=== PATIENT | male | born 1950 | race Caucasian/White ===

== ENCOUNTER 2017-12-03 20:22 | Emergency (ER) | payer BC ==
[2017-12-03 20:28] VITALS: TEMP 36.5
--- NOTE | 2017-12-03 21:20 | DIAGNOSTIC IMAGING REPORT ---
ABDOMEN 2VIEW W/PA CHEST RTN CLINICAL HISTORY: 67 years-old Male presenting with eval for obstruction. TECHNIQUE: PA view of the chest and supine and upright views of the abdomen were obtained. COMPARISON: None. FINDINGS: Image quality is significantly limited by severe S-shaped scoliotic curvature of the entire spine, degrading evaluation of the chest and abdomen. Allowing for suboptimal positioning, the cardiac silhouette may be enlarged.Linear opacity in the left midlung. No large effusion or pneumothorax. Large stool burden in the rectum. Moderate stool burden in the right colon. Nonobstructive bowel gas pattern. No gross pneumoperitoneum. Osteopenia. Chronic deformities of the femurs and pelvis. Chronic periosteal reaction of the left humerus likely indicating prior fracture. IMPRESSION: 1. Limited left midlung atelectasis or scarring. No convincing evidence of acute cardiopulmonary disease. 2. Findings suggest constipation. Large stool burden in the rectum; disimpaction recommended. No bowel obstruction or gross free air. Electronically signed by: Cortes Amezquita M.D. 12/03/2017 9:18 PM Dictated Date/Time: 12/03/2017 9:15 PM
[2017-12-03] MEDS ORDERED: MILK AND MOLASSES ENEMA PR STA (21:22)
[2017-12-03] MEDS ORDERED: CHOL200027 PO (21:47)
[2017-12-03] MEDS ORDERED: LACT10SO17 PO (21:47)
[2017-12-03] MEDS ORDERED: ASPI81TA28 PO (21:47)
[2017-12-03] MEDS ORDERED: MULT-506 PO (21:47)
[2017-12-03] MEDS ORDERED: LPR25 PO (21:47)
[2017-12-03] MEDS ORDERED: RANI150T3 PO (21:47)
[2017-12-03] MEDS ORDERED: DOCU100C PO (21:47)
[2017-12-03] MEDS ORDERED: POLY335019 PO (21:47)
[2017-12-03] MEDS ORDERED: MINE1OIL PO (21:47)
[2017-12-03 23:02] VITALS: BP 128/88; PULSE 78; O2SAT 94
--- NOTE | 2017-12-04 00:09 | EMERGENCY ROOM VISIT NOTE ---
History Report prepared by Kalpana: Sugey Gonzalez Under the Supervision of: Dr. Yuniel Cox M.D. 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 He is accompanied by his mother and sister who note he has not had a bowel movement since November 14. They note that when he is in pain, he squeezes his fists and rocks back and forth, which they notice he has been doing lately. They note he is passing gas and his stomach is distended but he is not vomiting and has no fevers. They report he is on MiraLAX. HPI limited due to the patient being not verbal. 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 Past Medical & Surgical Medical Problems: (1) Cerebral palsy Family History No pertinent family history Social History Smoking Status: Never Smoker Smokeless Tobacco Use: No Marital Status: single Housing Status: lives with family Current/Historical Medications Scheduled Aspirin (Aspirin Ec), 81 MG PO DAILY Cholecalciferol (Vitamin D-3), 2,000 INTER.UNIT PO DAILY Docusate Sodium (Stool Softener), 100 MG PO BID Lactulose (Chronulac), 1 DOSE PO AFTERNOON Metoprolol Tartrate (Lopressor), 25 MG PO BID Mineral Oil (Mineral Oil), 1 DOSE PO DAILY Multivitamin (Multivitamin), 1 TAB PO DAILY Polyethylene Glycol 3350 (Miralax), 17 GM PO QPM Ranitidine Hcl (Zantac), 150 MG PO BID Allergies Coded Allergies: No Known Allergies (Unverified , 12/03/17) Physical Exam Vital Signs Date Time Temp Pulse Resp B/P (MAP) Pulse Ox O2 Delivery O2 Flow Rate FiO2 12/03/17 23:02 78 18 128/88 94 Room Air 12/03/17 20:28 36.5 82 20 141/109 95 Room Air Physical Exam The physical exam is limited due to the patient's condition. Constitutional: Vital signs reviewed. Eyes: Pupils are equal round reactive to light. Conjunctiva are noninjected. ENT: Mucous membranes are moist Respiratory: Clear to auscultation bilaterally. Breath sounds are equal bilaterally. Cardiovascular: Regular rate and rhythm. No murmurs, rubs or gallops. GI: Soft, nondistended and nontender. Bowel sounds are present. Musculoskeletal: Contractions. Neurological: The patient is awake and alert. He is nonverbal. Psychiatric: Unable to assess. Medical Decision & Procedures ER Provider Diagnostic Interpretation: Radiology results as stated below per my review and the radiologist's interpretation: ABDOMEN 2VIEW W/PA CHEST RTN CLINICAL HISTORY: 67 years-old Male presenting with eval for obstruction. TECHNIQUE: PA view of the chest and supine and upright views of the abdomen were obtained. COMPARISON: None. FINDINGS: Image quality is significantly limited by severe S-shaped scoliotic curvature of the entire spine, degrading evaluation of the chest and abdomen. Allowing for suboptimal positioning, the cardiac silhouette may be enlarged.Linear opacity in the left midlung. No large effusion or pneumothorax. Large stool burden in the rectum. Moderate stool burden in the right colon. Nonobstructive bowel gas pattern. No gross pneumoperitoneum. Osteopenia. Chronic deformities of the femurs and pelvis. Chronic periosteal reaction of the left humerus likely indicating prior fracture. IMPRESSION: 1. Limited left midlung atelectasis or scarring. No convincing evidence of acute cardiopulmonary disease. 2. Findings suggest constipation. Large stool burden in the rectum; disimpaction recommended. No bowel obstruction or gross free air. Electronically signed by: Cortes Amezquita M.D. 12/03/2017 9:18 PM Medications Administered Medications (Trade) Dose Ordered Sig/Meghan Route Start Time Stop Time Status Last Admin Dose Admin Miscellaneous Medication (Milk And Molasses Enema) 1 ea NOW STAT NV 12/03/17 21:22 12/03/17 21:23 DC 12/03/17 22:29 1 EA ED Course 2031: The patient was evaluated in room A12. A complete history and physical exam was performed. 2122: I discussed his x-ray results with his family. 2121: Ordered Milk and Molasses Enema 1 ea NV 2300: Upon reevaluation, the patient had a large bowel movement. I discussed tonight's findings with his family. They verbalized agreement of the treatment plan. He was discharged home. Medical Decision This is a 67-year-old male brought in by his family for evaluation of constipation. I did perform a limited focused review of portions of the patient 's old chart on the electronic medical record. The patient has had no prior visits to this hospital. I did evaluate the patient as noted above. His family brought him in today because he has not been having bowel movements regularly. He has been having very small movements and passing gas. They are concerned he is constipated. They have no concerns for any other issues. He has not had a seizure. I did order and personally review the patient's abdominal and chest x-ray as described above. He does appear to have fecal impaction. I did order a milk and molasses enema. He did have a large bowel movement. He seemed to be improved per his family. He was discharged in good condition and will continue MiraLAX at home. Medication Reconcilliation Current Medication List: was personally reviewed by me Blood Pressure Screening Patient's blood pressure: Normal blood pressure Blood pressure disposition: Did not require urgent referral Impression Primary Impression: Fecal impaction Additional Impression: Constipation Scribe Attestation The scribe's documentation has been prepared under my direct and personally reviewed by me in its entirety. I confirm that the note above accurately reflects all work, treatment, procedures, and medical decision making performed by me. Departure Information Dispostion Home / Self-Care Referrals Vidhya Plascencia DO (PCP) Forms HOME CARE DOCUMENTATION FORM, IMPORTANT VISIT INFORMATION Patient Instructions My [facility] Additional Instructions You have been examined and treated today on an emergency basis only. This is not a substitute for, or an effort to provide, complete comprehensive medical care. It is impossible to recognize and treat all injuries or illnesses in a single emergency department visit. It is therefore important that you follow up closely with your physician. Call as soon as possible for an appointment. Return for worsening symptoms or if you develop fever, vomiting, or any other concerning symptoms. Problem Qualifiers Additional Impression: Constipation Constipation type: unspecified constipation type Qualified Codes: K59.00 - Constipation, unspecified
== END 2017-12-03 23:13 | disposition home or self-care (01) ==
LOC: C.EDB 20:23 → C.EDA 23:13
DX: K59.00 Constipation, unspecified (principal)

== ENCOUNTER 2018-11-06 21:56 | Inpatient (IN) ==
--- NOTE | 2018-11-06 23:12 | XRay Report ---
SINGLE VIEW CHEST CLINICAL HISTORY: Fever. FINDINGS: An AP, portable, upright chest radiograph is compared to study dated 12/03/2017. The examinat ion is significantly degraded by portable technique and patient rotation. The cardiomediastinal silh ouette is unremarkable. There are low lung volumes. Airspace consolidation is seen at the right lung base. No large pleural effusion or pneumothorax is seen. The skeletal structures are osteopenic. The bony thorax is grossly intact. There is moderate to severe thoracolumbar scoliosis with deformity of the thoracic cage. IMPRESSION: 1. Thoracolumbar scoliosis with deformity of the thoracic cage and low lung volumes. 2. Consolidation is seen at the right lung base. This could represent atelectasis versus pneumonia. C linical correlation will be required. 3. The left lung appears clear. Electronically signed by: Jayden Hernández M.D. 11/06/2018 11:10 PM
[2018-11-06 23:39] LABS: Basophils # (auto) 0.01 K/uL (0-0.2); Basophils % (auto) 0.1 %; Eosinophils # (auto) 0.06 K/uL (0-0.5); Eosinophils % (auto) 0.5 %; Hematocrit (blood only) 42.5 % (42-52); Hemoglobin 14.4 g/dL (14.0-18.0); Immature Granulocytes # (auto) 0.04 K/uL (0.00-0.02); Immature Granulocytes % (auto) 0.3 %; Lymphocytes # (auto) 0.47 K/uL (1.2-3.4); Lymphocytes % (auto) 3.6 %; Mean Corpuscular Hgb Conc 33.9 g/dL (32-36); Mean Corpuscular Volume 91.2 fL (80-100); Mean Platelet Volume 8.8 fL (7.4-10.4); Monocytes # (auto) 0.63 K/uL (0.11-0.59); Monocytes % (auto) 4.8 %; Neutrophils % (auto) 90.7 %; Platelet Count 245 K/uL (130-400); RDW Coefficient of Variation 14.4 % (11.5-14.5); Red Blood Count 4.66 M/uL (4.7-6.1); White Blood Count 13.01 K/uL (4.8-10.8)
[2018-11-06] MEDS ORDERED: VANCOMYCIN HCL 750 MG in SODIUM CHLORIDE 0.9% 500 ML IV ONE (23:44)
[2018-11-06] MEDS ORDERED: VANCOMYCIN HCL 750 MG in SODIUM CHLORIDE 0.9% 250 ML IV ONE (23:44)
[2018-11-06] MEDS ORDERED: PIPERACILL/TAZOBAC CONSULT ACTIVE PRN (23:44)
[2018-11-06] MEDS ORDERED: VANCOMYCIN CONSULT ACTIVE PRN (23:44)
[2018-11-06] MEDS ORDERED: PIPERACILLIN/TAZOBACTAM 4.5 GM/120 ML BAG IV ONE (23:44)
[2018-11-06] MEDS ORDERED: SODIUM CHLORIDE 0.9% 1000ML 1,000 ML IV SCH (23:45)
[2018-11-07 00:05] LABS: Alanine Aminotransferase 28 U/L (12-78); Albumin Level 2.8 gm/dl (3.4-5.0); Aspartate Aminotransferase 31 U/L (15-37); BUN Creatinine Ratio 38.7 (10-20); Blood Urea Nitrogen 22 mg/dl (7-18); Calcium 8.6 mg/dl (8.5-10.1); Carbon Dioxide 24 mmol/L (21-32); Chloride 106 mmol/L (98-107); Creatinine Clr Calc Pharmacy 56.4 ml/min; Est GFR (African American) 121.4; Est GFR (Non-African American) 104.8; Glucose 122 mg/dl (70-99); Potassium 4.3 mmol/L (3.5-5.1); Sodium 137 mmol/L (136-145)
[2018-11-07 00:07] LABS: Albumin Globulin Ratio 0.6 (0.9-2); Alkaline Phosphatase 130 U/L (45-117); Bilirubin,Total 0.3 mg/dl (0.2-1); Globulin 4.5 gm/dl (2.5-4.0); Total Protein 7.3 gm/dl (6.4-8.2); Troponin I < 0.015 ng/ml (0-0.045)
[2018-11-07 00:12] LABS: Appearance Urine Clear (Clear); Bilirubin Urine Negative (Negative); Blood Urine Negative (Negative); Color Urine Yellow; Glucose Urine UA Negative (Negative); Ketones Urine Negative (Negative); Leukocyte Esterase Urine Negative (Negative); Nitrite Urine Negative (Negative); Protein Urine Negative (Negative); Specific Gravity Urine 1.022 (1.000-1.030); Urobilinogen Urine Negative (Negative)
--- NOTE | 2018-11-07 02:46 | History & Physical Report ---
Date of Service November 07, 2018 Assessment & Plan (1) Pneumonia: 68-year-old male was admitted on 07 November 2018 for pneumonia. Pneumonia, sepsis: Noted to have some difficulty breathing per family this evening and perhaps an on and off cough for the past month. Arrived to ED afebrile, tachycardic in the 120s, tachypneic in 30s. Lowest blood pressure was 91/61. Room SpO2 in low 90s. WBC 13. POC lactate 1.89. pCXR single view notable for consolidation at the right lung base. Blood cultures sent. Meets criteria for sepsis. - In ED, treated with vancomycin and Zosyn. Given a one liter normal saline bolus. - Given patient's pneumonia is likely community-acquired, will stop the vancomycin and Zosyn. Will start on azithromycin and ceftriaxone. Keep on IVF maintenance (weight-based dosing). - We will send a nasal MRSA swab as well. Recheck lactate with morning labs. Ongoing medical issues: - Cerebral palsy: Per family, from . Non-verbal at baseline. - CAD, prior [place] 2005: Continue home aspirin and metoprolol. - GERD: Continue home Zantac. - Fecal impactions/constipation: Patient had a bowel movement today. No family concern for this acutely. Continue home bowel regimen of docusate, lactulose, and mineral oil. Code status: Discussed the concept of a code status with the patients mother and sister. They both stated that they wish for him to get routine medical care but would not want him to undergo chest compressions or be intubated. Therefore will make patient DO NOT RESUSCITATE per their wishes. Diet: Heart healthy. DVT prophy: Due to chronic contractures, acute DVT prophylaxis not required. PT/OT: Deferred. Disbo: Admit to [facility]. (2) Sepsis: (3) Cerebral palsy: (4) Coronary artery disease: (5) GERD (gastroesophageal reflux disease): (6) Constipation: History of Present Illness Primary Care Provider: Vidhya Plascencia DO 68-year-old male was brought in by his family with concerns for difficulty breathing. Of note, patient has cerebral palsy since and is nonverbal. All of the history comes from the patient's family at bedside. Patient's sister is the primary caregiver but the patient's mother as well as the sister's are present to provide background. Per sister, the patient was noted to have some difficulty breathing this evening. Apparently this is rather sudden onset as it was not noted earlier tod sridevi and he had no difficulty eating dinner. She does note that he has had an on/off cough for about 1 month. He also felt warm today. She denies any changes in his overall interaction or behavior. No known emesis or history of aspiration. Does have a history of constipation but had a normal bowel movement today. They note that this last hospitalization was around 2005 during the time of his [place]. Otherwise he does visit the hospital for dental work and has routine outpatient primary care visits. No known direct sick contacts. No other acute caregiver concerns. Past medical history includes cerebral palsy, CAD, prior [place] in 2005, GERD, constipation. Past surgical history: None. Social history notable for living with his sister (as primary caregiver) as well as his mother. Allergies Allergy/AdvReac Type Severity Reaction Status Date / Time No Known Allergies Allergy Unverified 11/07/18 00:13 Home Medications Home Medications Medication Instructions Recorded Confirmed Type aspirin 81 mg PO DAILY 11/07/18 11/07/18 History cholecalciferol (vitamin D3) 1,000 unit PO DAILY 11/07/18 11/07/18 History [Vitamin D3] docusate sodium 100 mg PO BID 11/07/18 11/07/18 History lactulose 10 g PO DAILY 11/07/18 11/07/18 History metoprolol tartrate 25 mg PO BID 11/07/18 11/07/18 History mineral oil 2 tsp DAILY 11/07/18 11/07/18 History multivitamin 1 tab PO DAILY 11/07/18 11/07/18 History ranitidine HCl [Zantac] 150 mg PO BID 11/07/18 11/07/18 History Past Med/Surg History Medical History Cerebral palsy Heart attack Social History Feels Safe at Home: Yes Smoking Status: Never smoker Review of Systems Unable to obtain direct ROS due to patient's nonverbal status. However, per family, question of recent fever. Ongoing cough. No vomiting or diarrhea. No changes in overall activity or behaviors. Physical Exam Vital Signs (Past 24 Hours): Last Vital Signs Temp 36.7 C 11/06/18 22:06 Pulse 103 H 11/07/18 02:30 Resp 24 11/07/18 01:00 BP 91/63 L 11/07/18 02:30 Pulse Ox 95 11/07/18 02:15 Physical Exam: General Appearance: Awake, appears alert and somewhat communicative with family at bedside, does not appear in acute distress. Cachectic overall. CV: +S1S2 regular tachycardia, no murmur. Pulm: Questionable decreased breath sounds at the right base. Abdomen: +BS, soft, no obvious facial changes on palpation, non-distended. Neuro / MSK: Nonverbal at baseline. Generalized extremity contractures. Smiles with family members talking to him. Results & Data Laboratory Results Laboratory Results WBC 13.01 K/uL (4.8-10.8) H 11/06/18 23:25 RBC 4.66 M/uL (4.7-6.1) L 11/06/18 23:25 Hgb 14.4 g/dL (14.0-18.0) 11/06/18 23:25 Hct 42.5 % (42-52) 11/06/18 23:25 MCV 91.2 fL (80-100) 11/06/18 23:25 MCH 30.9 pg (25-34) 11/06/18 23:25 MCHC 33.9 g/dL (32-36) 11/06/18 23:25 RDW Std Deviation 48.0 fL (36.4-46.3) H 11/06/18 23:25 RDW Coeff of Zain 14.4 % (11.5-14.5) 11/06/18 23:25 Plt Count 245 K/uL (130-400) 11/06/18 23:25 MPV 8.8 fL (7.4-10.4) 11/06/18 23:25 Immature Gran % (Auto) 0.3 % 11/06/18 23:25 Neut % (Auto) 90.7 % 11/06/18 23:25 Lymph % (Auto) 3.6 % 11/06/18 23:25 [place] % (Auto) 4.8 % 11/06/18 23:25 Eos % (Auto) 0.5 % 11/06/18 23:25 Baso % (Auto) 0.1 % 11/06/18 23:25 Immature Gran # (Auto) 0.04 K/uL (0.00-0.02) H 11/06/18 23:25 Neut # (Auto) 11.80 K/uL (1.4-6.5) H 11/06/18 23:25 Lymph # (Auto) 0.47 K/uL (1.2-3.4) L 11/06/18 23:25 [place] # (Auto) 0.63 K/uL (0.11-0.59) H 11/06/18 23:25 Eos # (Auto) 0.06 K/uL (0-0.5) 11/06/18 23:25 Baso # (Auto) 0.01 K/uL (0-0.2) 11/06/18 23:25 Sodium 137 mmol/L (136-145) 11/06/18 23:25 Potassium 4.3 mmol/L (3.5-5.1) 11/06/18 23:25 Chloride 106 mmol/L (98-107) 11/06/18 23:25 Carbon Dioxide 24 mmol/L (21-32) 11/06/18 23:25 Anion Gap 7.0 (3-11) 11/06/18 23:25 BUN 22 mg/dl (7-18) H 11/06/18 23:25 Creatinine 0.57 mg/dl (0.6-1.4) L 11/06/18 23:25 Est Cr Clr Drug Dosing 56.4 ml/min 11/06/18 23:25 Est GFR ( Amer) 121.4 11/06/18 23:25 Est GFR (Non-Af Amer) 104.8 11/06/18 23:25 BUN/Creatinine Ratio 38.7 (10-20) H 11/06/18 23:25 Glucose 122 mg/dl (70-99) H 11/06/18 23:25 POC Lactic Acid Jorge A 1.89 mmol/L (0.90-1.70) H 11/06/18 23:35 Calcium 8.6 mg/dl (8.5-10.1) 11/06/18 23:25 Total Bilirubin 0.3 mg/dl (0.2-1) 11/06/18 23:25 AST 31 U/L (15-37) 11/06/18 23:25 ALT 28 U/L (12-78) 11/06/18 23:25 Alkaline Phosphatase 130 U/L (45-117) H 11/06/18 23:25 Troponin I < 0.015 ng/ml (0-0.045) 11/06/18 23:25 Total Protein 7.3 gm/dl (6.4-8.2) 11/06/18 23:25 Albumin 2.8 gm/dl (3.4-5.0) L 11/06/18 23:25 Globulin 4.5 gm/dl (2.5-4.0) H 11/06/18 23:25 Albumin/Globulin Ratio 0.6 (0.9-2) L 11/06/18 23:25 Specimen Hemolysis 11/06/18 23:25 Urine Color Yellow 11/06/18 23:55 Urine Appearance Clear (Clear) 11/06/18 23:55 Urine pH 5.0 (4.5-7.5) 11/06/18 23:55 Ur Specific [place] 1.022 (1.000-1.030) 11/06/18 23:55 Urine Protein Negative (Negative) 11/06/18 23:55 Urine Glucose (UA) Negative (Negative) 11/06/18 23:55 Urine Ketones Negative (Negative) 11/06/18 23:55 Urine Blood Negative (Negative) 11/06/18 23:55 Urine Nitrite Negative (Negative) 11/06/18 23:55 Urine Bilirubin Negative (Negative) 11/06/18 23:55 Urine Urobilinogen Negative (Negative) 11/06/18 23:55 Ur Leukocyte Esterase Negative (Negative) 11/06/18 23:55 Medications Administered Discontinued Medications Sodium Chloride (Nss 1000ml) 1,000 mls @ 999 mls/hr IV .Q1H1M SHAYY Stop: 11/07/18 00:45 Last Infusion: 11/07/18 01:11 Dose: 0 mls/hr Documented by: [id number] Admin: 11/07/18 00:07 Dose: 999 mls/hr Documented by: [id number] Piperacillin Sod/Tazobactam Sod (Zosyn) 4.5 gm in 120 mls @ 240 mls/hr IV NOW ONE Stop: 11/07/18 00:13 Last Infusion: 11/07/18 00:39 Dose: 0 mls/hr Documented by: [id number] Admin: 11/07/18 00:07 Dose: 240 mls/hr Documented by: [id number] Vancomycin HCl 750 mg/ Sodium (Chloride) 265 mls @ 125 mls/hr IV NOW ONE Stop: 11/07/18 01:51 Last Admin: 11/07/18 00:39 Dose: 125 mls/hr Documented by: [id number] Code Status & VTE Plan Code Status Discussed the concept of a code status with the patients mother and sister. They both stated that they wish for him to get routine medical care but would not want him to undergo chest compressions or be intubated. Therefore will make patient DO NOT RESUSCITATE per their wishes. VTE Prophylaxis Plan VTE Prophylaxis will be ordered: No Reason for no VTE mechanical prophylaxis: Treatment not indicated Supervising Physician Co-Signing Physician Notes Patient seen and examined, chart reviewed, case discussed with Dr. Fuentes and I agree with his assessment and plan as documented above. Briefly, patient is a 68yo male with CP presenting from home with PNA. Cough, fever at home. On physical exam he is a afebrile, tachycardic, BP low on arrival Gen - severe debility, contractures, nonverbal Skin - intact, no rashes/lesions/decubiti HEENT - NC/AT, MMM, neck supple Heart - +S1/S2, regular, no m/r/g Lungs - CTA Abd - +BS, soft, NT/ND Ext - severe contractures, 2+ pulses Labs and images reviewed Assessment/Plan: CAP - treat with Ceftriaxone, Azithromycin. Continue IVF Remainder of plan as above Resident Activity Tracking Resident Involvement: Resident Care Provided Care Provided: Adult Hospital Medicine (1) Sepsis Sepsis type: sepsis due to unspecified organism Qualified Code(s): A41.9 - Sepsis, unspecified organism (2) Pneumonia Laterality: right Lung location: lower lobe of lung Pneumonia type: due to unspecified organism Qualified Code(s): J18.1 - Lobar pneumonia, unspecified organism
--- NOTE | 2018-11-07 03:44 | Emergency Department Note ---
Entered by Lluvia Harris acting as a scribe for Govind Pollock MD ED Provider Note CHIEF COMPLAINT: Shortness of breath HISTORY OF PRESENT ILLNESS: The patient is a 68 year old male presenting to the Emergency Department complaining of persistent shortness of breath starting X days ago. The patients family reports that the patient has been short of breath. They state that the patient has had a fever and a cough. They note that the patient has been admitted to the hospital before for an impacted bowel. They add that the patient sees Dr. Temo WILEY PCP. The family reports that the patient felt warm earlier today. They state that the patient received Tylenol at 0700 today. They add that the patient has had cerebral palsy since he was born. Pt denies LOC, headache, diaphoresis, visual changes, neck pain, chest pain, nausea, vomiting, abdominal pain, back pain, melena, hematochezia, urinary symptoms, numbness, weakness, lymphadenopathy, rash, or other complaints. REVIEW OF SYSTEMS: See HPI for pertinent positives and negatives. A total of ten systems were reviewed and were otherwise negative. PMHx/PSHx: Cerebral palsy, Heart attack. SOCIAL HISTORY: Patient lives at home. Never a smoker. PHYSICAL EXAM: GENERAL: Awake, alert, coughing but in no significant distress. HENT: Normocephalic, atraumatic. Oropharynx unremarkable. EYES: Normal conjunctiva. Sclera non-icteric. NECK: Inspection normal. Non-tender. Supple. No nuchal rigidity. FROM. No masses. RESPIRATORY: Clear to auscultation. No wheezes. No rales. Normal respiratory effort. Coarse breath sounds that are worse on the right. CARDIAC: Tachycardic rate. Normal rhythm. No murmurs. No rubs. Extremities warm and well perfused. Pulses equal. No JVD. GI: Soft, non-distended. No tenderness to palpation. No rebound or guarding. No masses. RECTAL: Deferred. MUSCULOSKELETAL: Atraumatic. Chest examination reveals no tenderness. The back is symmetrical on inspection without obvious abnormality. There is no CVA tenderness to palpation. No joint edema. Severe contractures of upper and lower extremities. LOWER EXTREMITIES: Calves are equal size bilaterally and non-tender. No edema. No discoloration. NEURO: Altered sensorium. Does not follow commands. SKIN: No rash or jaundice noted. EMERGENCY DEPARTMENT COURSE: 2300: The patient was evaluated in room C4, and a complete history and physical examination were performed. 2346: I consulted the pharmacist at this time who agrees with me on the patients medication dosage. 2350: I updated the patients family at this time. 0105: I reviewed the patient's case with Dr. [email or web address] ZAPIEN Hospitalist. She will evaluate the patient for further management. MEDICAL DECISION MAKING: Prior records/ancillary studies reviewed. Triage Nursing notes reviewed and agree them. Additional history obtained from the family. The patient's history was concerning for possible infection. Differential diagnosis: Etiologies such as sepsis, UTI, pneumonia, electrolyte abnormalities, cardiac sources, intracerebral event, toxicologic, neurologic, as well as others were entertained. Physical examination: As above. The patient is debilitated from his lifelong CP ER treatment provided: IV fluid resuscitation 1 L bolus to meet the 30 mL/kg. Blood and urine cultures Antibiotics: IV Zosyn, IV vancomycin On reassessment the patient's heart rate improved. Diagnostics interpretation by me: ECG: Sinus tachycardia The labs revealed a mild leukocytosis on CBC. Chemistry panel was unremarkable. Blood cultures pending. Urinalysis negative. Urine culture pending. Imaging studies: Chest imaging concerning for pneumonia. The family was updated. The patient was covered with Zosyn and vancomycin. Given the x-ray findings and his symptoms this is very concerning for pneumonia. He is at increased risk for aspiration. The patient is doing relatively well under the circumstances. I did discuss his findings and treatment with the family. They were in agreement. Consultation: A consultation was placed with the hospitalist. The case was discussed and diagnostics were reviewed. The patient was evaluated in the ER for further treatment. IMPRESSION: Sepsis, Pneumonia PLAN: Being Evaluated by Hospitalist The scribe's documentation has been prepared under my direction and personally reviewed by me in its entirety. I confirm that the note above accurately reflects all work, treatment, procedures, and medical decision making performed by me. Impression & Plan Sepsis, Pneumonia Past Med/Surg History Medical History Cerebral palsy Heart attack Social History Feels Safe at Home: Yes Smoking Status: Never smoker Results & Data Vital Signs Vital Signs - 24 hr 11/06/18 22:06 11/06/18 22:07 11/06/18 22:15 Temperature 36.7 C Temperature Source Axillary Sepsis Recent Fever Within 48 Hours Yes Sepsis New/Unexplained Change in Mental Status No Sepsis Action Taken by Nursing No Action Required Pulse Rate 131 H 129 H 130 H Pulse Rate from SpO2 Sensor 131 H 129 H 129 H Respiratory Rate 40 H 34 H 34 H Blood Pressure 100/72 Blood Pressure Mean 81 Pulse Oximetry 90 90 Oxygen Delivery Method Room Air 11/06/18 22:30 11/06/18 22:45 11/06/18 23:00 Temperature Temperature Source Sepsis Recent Fever Within 48 Hours Sepsis New/Unexplained Change in Mental Status Sepsis Action Taken by Nursing Pulse Rate 128 H 126 H 124 H Pulse Rate from SpO2 Sensor 128 H 127 H 124 H Respiratory Rate 32 H 33 H 35 H Blood Pressure 91/61 L 94/78 L Blood Pressure Mean 71 83 Pulse Oximetry 90 91 91 Oxygen Delivery Method 11/06/18 23:15 11/06/18 23:30 11/06/18 23:45 Temperature Temperature Source Sepsis Recent Fever Within 48 Hours Sepsis New/Unexplained Change in Mental Status Sepsis Action Taken by Nursing Pulse Rate 126 H 123 H 122 H Pulse Rate from SpO2 Sensor 126 H 124 H 122 H Respiratory Rate 23 28 H 26 H Blood Pressure 103/70 Blood Pressure Mean 81 Pulse Oximetry 92 93 93 Oxygen Delivery Method 11/07/18 00:00 11/07/18 00:15 11/07/18 00:30 Temperature Temperature Source Sepsis Recent Fever Within 48 Hours Sepsis New/Unexplained Change in Mental Status Sepsis Action Taken by Nursing Pulse Rate 122 H 117 H 108 H Pulse Rate from SpO2 Sensor 122 H 117 H 108 H Respiratory Rate 25 H 24 Blood Pressure 99/72 L 102/64 Blood Pressure Mean 81 76 Pulse Oximetry 94 94 95 Oxygen Delivery Method Room Air Room Air 11/07/18 00:45 11/07/18 01:00 11/07/18 01:15 Temperature Temperature Source Sepsis Recent Fever Within 48 Hours Sepsis New/Unexplained Change in Mental Status Sepsis Action Taken by Nursing Pulse Rate 108 H 106 H 104 H Pulse Rate from SpO2 Sensor 108 H 105 H 105 H Respiratory Rate 24 Blood Pressure 97/60 L Blood Pressure Mean 72 Pulse Oximetry 96 96 95 Oxygen Delivery Method Room Air Room Air Room Air 11/07/18 01:30 11/07/18 01:45 11/07/18 02:00 Temperature Temperature Source Sepsis Recent Fever Within 48 Hours Sepsis New/Unexplained Change in Mental Status Sepsis Action Taken by Nursing Pulse Rate 107 H 107 H 105 H Pulse Rate from SpO2 Sensor 107 H 107 H 105 H Respiratory Rate Blood Pressure Blood Pressure Mean Pulse Oximetry 93 94 95 Oxygen Delivery Method 11/07/18 02:15 11/07/18 02:30 11/07/18 03:31 Temperature Temperature Source Sepsis Recent Fever Within 48 Hours Sepsis New/Unexplained Change in Mental Status Sepsis Action Taken by Nursing Pulse Rate 104 H 103 H 105 H Pulse Rate from SpO2 Sensor 104 H 104 H Respiratory Rate 16 Blood Pressure 91/63 L 86/55 L Blood Pressure Mean 72 Pulse Oximetry 95 94 Oxygen Delivery Method Room Air Home Medications Current Medication List: was personally reviewed by me Laboratory Data Attestation: I reviewed the patient's lab results. Result diagrams: 11/06/18 23:25 11/06/18 23:25 Lab Results 11/06/18 11/06/18 11/06/18 Range/Units 23:25 23:25 23:35 WBC 13.01 H (4.8-10.8) K/uL RBC 4.66 L (4.7-6.1) M/uL Hgb 14.4 (14.0-18.0) g/dL Hct 42.5 (42-52) % MCV 91.2 (80-100) fL MCH 30.9 (25-34) pg MCHC 33.9 (32-36) g/dL RDW Std Deviation 48.0 H (36.4-46.3) fL RDW Coeff of Zain 14.4 (11.5-14.5) % Plt Count 245 (130-400) K/uL MPV 8.8 (7.4-10.4) fL Immature Gran % (Auto) 0.3 % Neut % (Auto) 90.7 % Lymph % (Auto) 3.6 % [place] % (Auto) 4.8 % Eos % (Auto) 0.5 % Baso % (Auto) 0.1 % Immature Gran # (Auto) 0.04 H (0.00-0.02) K/uL Neut # (Auto) 11.80 H (1.4-6.5) K/uL Lymph # (Auto) 0.47 L (1.2-3.4) K/uL [place] # (Auto) 0.63 H (0.11-0.59) K/uL Eos # (Auto) 0.06 (0-0.5) K/uL Baso # (Auto) 0.01 (0-0.2) K/uL Sodium 137 (136-145) mmol/L Potassium 4.3 (3.5-5.1) mmol/L Chloride 106 (98-107) mmol/L Carbon Dioxide 24 (21-32) mmol/L Anion Gap 7.0 (3-11) BUN 22 H (7-18) mg/dl Creatinine 0.57 L (0.6-1.4) mg/dl Est Cr Clr Drug Dosing 56.4 ml/min Est GFR ( Amer) 121.4 Est GFR (Non-Af Amer) 104.8 BUN/Creatinine Ratio 38.7 H (10-20) Glucose 122 H (70-99) mg/dl POC Lactic Acid Jorge A 1.89 H (0.90-1.70) mmol/L Calcium 8.6 (8.5-10.1) mg/dl Total Bilirubin 0.3 (0.2-1) mg/dl AST 31 (15-37) U/L ALT 28 (12-78) U/L Alkaline Phosphatase 130 H (45-117) U/L Troponin I < 0.015 (0-0.045) ng/ml Total Protein 7.3 (6.4-8.2) gm/dl Albumin 2.8 L (3.4-5.0) gm/dl Globulin 4.5 H (2.5-4.0) gm/dl Albumin/Globulin Ratio 0.6 L (0.9-2) Specimen Hemolysis Urine Color Urine Appearance (Clear) Urine pH (4.5-7.5) Ur Specific [place] (1.000-1.030) Urine Protein (Negative) Urine Glucose (UA) (Negative) Urine Ketones (Negative) Urine Blood (Negative) Urine Nitrite (Negative) Urine Bilirubin (Negative) Urine Urobilinogen (Negative) Ur Leukocyte Esterase (Negative) 11/06/18 Range/Units 23:55 WBC (4.8-10.8) K/uL RBC (4.7-6.1) M/uL Hgb (14.0-18.0) g/dL Hct (42-52) % MCV (80-100) fL MCH (25-34) pg MCHC (32-36) g/dL RDW Std Deviation (36.4-46.3) fL RDW Coeff of Zain (11.5-14.5) % Plt Count (130-400) K/uL MPV (7.4-10.4) fL Immature Gran % (Auto) % Neut % (Auto) % Lymph % (Auto) % [place] % (Auto) % Eos % (Auto) % Baso % (Auto) % Immature Gran # (Auto) (0.00-0.02) K/uL Neut # (Auto) (1.4-6.5) K/uL Lymph # (Auto) (1.2-3.4) K/uL [place] # (Auto) (0.11-0.59) K/uL Eos # (Auto) (0-0.5) K/uL Baso # (Auto) (0-0.2) K/uL Sodium (136-145) mmol/L Potassium (3.5-5.1) mmol/L Chloride (98-107) mmol/L Carbon Dioxide (21-32) mmol/L Anion Gap (3-11) BUN (7-18) mg/dl Creatinine (0.6-1.4) mg/dl Est Cr Clr Drug Dosing ml/min Est GFR ( Amer) Est GFR (Non-Af Amer) BUN/Creatinine Ratio (10-20) Glucose (70-99) mg/dl POC Lactic Acid Jorge A (0.90-1.70) mmol/L Calcium (8.5-10.1) mg/dl Total Bilirubin (0.2-1) mg/dl AST (15-37) U/L ALT (12-78) U/L Alkaline Phosphatase (45-117) U/L Troponin I (0-0.045) ng/ml Total Protein (6.4-8.2) gm/dl Albumin (3.4-5.0) gm/dl Globulin (2.5-4.0) gm/dl Albumin/Globulin Ratio (0.9-2) Specimen Hemolysis Urine Color Yellow Urine Appearance Clear (Clear) Urine pH 5.0 (4.5-7.5) Ur Specific [place] 1.022 (1.000-1.030) Urine Protein Negative (Negative) Urine Glucose (UA) Negative (Negative) Urine Ketones Negative (Negative) Urine Blood Negative (Negative) Urine Nitrite Negative (Negative) Urine Bilirubin Negative (Negative) Urine Urobilinogen Negative (Negative) Ur Leukocyte Esterase Negative (Negative) Administered Medications Discontinued Medications Sodium Chloride (Nss 1000ml) 1,000 mls @ 999 mls/hr IV .[id number] SHAYY Stop: 11/07/18 00:45 Last Infusion: 11/07/18 01:11 Dose: 0 mls/hr Documented by: [id number] Admin: 11/07/18 00:07 Dose: 999 mls/hr Documented by: [id number] Piperacillin Sod/Tazobactam Sod (Zosyn) 4.5 gm in 120 mls @ 240 mls/hr IV NOW ONE Stop: 11/07/18 00:13 Last Infusion: 11/07/18 00:39 Dose: 0 mls/hr Documented by: [id number] Admin: 11/07/18 00:07 Dose: 240 mls/hr Documented by: [id number] Vancomycin HCl 750 mg/ Sodium (Chloride) 265 mls @ 125 mls/hr IV NOW ONE Stop: 11/07/18 01:51 Last Infusion: 11/07/18 02:49 Dose: 0 mls/hr Documented by: [id number] Admin: 11/07/18 00:39 Dose: 125 mls/hr Documented by: [id number] Imaging Data Radiologist's Impression: Radiology results as stated below per my review and the radiologist's interpretation: SINGLE VIEW CHEST CLINICAL HISTORY: Fever. FINDINGS: An AP, portable, upright chest radiograph is compared to study dated 12/03/2017. The examination is significantly degraded by portable technique and patient rotation. The cardiomediastinal silhouette is unremarkable. There are low lung volumes. Airspace consolidation is seen at the right lung base. No large pleural effusion or pneumothorax is seen. The skeletal structures are osteopenic. The bony thorax is grossly intact. There is moderate to severe thoracolumbar scoliosis with deformity of the thoracic cage. IMPRESSION: 1. Thoracolumbar scoliosis with deformity of the thoracic cage and low lung volumes. 2. Consolidation is seen at the right lung base. This could represent atelectasis versus pneumonia. Clinical correlation will be required. 3. The left lung appears clear. Electronically signed by: Jayden Hernández M.D. 11/06/2018 11:10 PM ECG Data Attestation: I personally reviewed and interpreted this ECG as follows: Indication: SOB/dyspnea Rate (beats per minute): 131 Rhythm: sinus tachycardia Findings: no PAC, no PVC, no ST depression and no ST elevation Blood Pressure Blood Pressure Findings: Low blood pressure Blood Pressure Disposition: further management by hospitalist Discharge Plan Visit Data Chief Complaint: Shortness of Breath/Dyspnea Stated Complaint: SOB ED Provider: Govind Pollock Discharge Problem: Sepsis, Pneumonia Patient Disposition: Being Evaluated by Hospitalist Discharge Instructions Interventions: ED Discharge Assessment Last Done: 11/07/18 03:31 Forms Stand Alone Forms: My [facility] [email or web address] Prescriptions Prescriptions: No Action ranitidine HCl [Zantac] 150 mg Tablet 150 mg PO BID RF: 0 metoprolol tartrate 25 mg Tablet 25 mg PO BID RF: 0 lactulose 10 gram/15 mL Solution 10 g PO DAILY RF: 0 docusate sodium 100 mg Tablet 100 mg PO BID RF: 0 cholecalciferol (vitamin D3) [Vitamin D3] 1,000 unit Tablet 1,000 unit PO DAILY RF: 0 multivitamin Tablet 1 tab PO DAILY RF: 0 aspirin 81 mg Tablet,Delayed Release (Dr/Ec) 81 mg PO DAILY RF: 0 mineral oil Oil 2 tsp DAILY RF: 0 Referrals Referrals: Vidhya Plascencia DO [Primary Care Provider] - Discharge Problem: Sepsis Qualifiers: Sepsis type: sepsis due to unspecified organism Qualified Code(s): A41.9 - Sepsis, unspecified organism Pneumonia Qualifiers: Pneumonia type: due to unspecified organism Laterality: right Lung location: lower lobe of lung Qualified Code(s): J18.1 - Lobar pneumonia, unspecified organism The scribe's documentation has been prepared under my direction and personally reviewed by me in its entirety. I confirm that the note above accurately reflects all work, treatment, procedures, and medical decision making performed by me.
[2018-11-07] MEDS ORDERED: ONDANSETRON INJ 2 MG/ML 2 ML VIAL IV PRN (03:50)
[2018-11-07] MEDS ORDERED: ACETAMINOPHEN 325 MG TAB PO PRN (03:50)
[2018-11-07] MEDS: SODIUM CHLORIDE 0.9% 1000ML 1,000 ML IV SCH ×2 (04:26→20:08)
[2018-11-07 05:35] LABS: Basophils # (auto) 0.01 K/uL (0-0.2); Basophils % (auto) 0.1 %; Eosinophils # (auto) 0.01 K/uL (0-0.5); Eosinophils % (auto) 0.1 %; Hematocrit (blood only) 35.8 % (42-52); Hemoglobin 11.8 g/dL (14.0-18.0); Immature Granulocytes # (auto) 0.02 K/uL (0.00-0.02); Immature Granulocytes % (auto) 0.2 %; Lymphocytes # (auto) 0.75 K/uL (1.2-3.4); Lymphocytes % (auto) 7.4 %; Mean Corpuscular Volume 92.5 fL (80-100); Mean Platelet Volume 8.6 fL (7.4-10.4); Monocytes # (auto) 0.57 K/uL (0.11-0.59); Monocytes % (auto) 5.6 %; Neutrophils # (auto) 8.75 K/uL (1.4-6.5); Neutrophils % (auto) 86.6 %; Platelet Count 210 K/uL (130-400); RDW Coefficient of Variation 14.4 % (11.5-14.5); Red Blood Count 3.87 M/uL (4.7-6.1); White Blood Count 10.11 K/uL (4.8-10.8)
[2018-11-07 05:52] LABS: BUN Creatinine Ratio 31.4 (10-20); Calcium 7.7 mg/dl (8.5-10.1); Est GFR (African American) 130.3; Est GFR (Non-African American) 112.4
[2018-11-07] MEDS ORDERED: AZITHROMYCIN 500 MG in DEXTROSE 5% 250 ML IV SCH (08:00)
[2018-11-07] MEDS: METOPROLOL TARTRATE 25 MG TAB PO SCH ×2 (08:34→20:09)
[2018-11-07] MEDS ORDERED: cefTRIAXone SODIUM 1,000 MG in DEXTROSE 5% 50 ML IV SCH (10:00)
--- NOTE | 2018-11-07 11:26 | Family Medicine Progress Note ---
Date of Service November 07, 2018 Assessment & Plan (1) Pneumonia: 68-year-old male was admitted on 07 November 2018 for suspected pneumonia. Aspiration Pneumonia : - One day history of cough. - Has remained afebrile. Blood pressure remains on lower end of normotensive/higher end of hypo. Tachycardic and tachypnoiec - On Azithromycin and Ceftriaxone considering adding Unasyn for concern of aspiration - Concerned for aspiration speech therapy consulted and patient found to have no swallow reflex discernible -Patient made NPO and mother does not want any tube feeding. Will keep NPO for now treat his pneumonia and reassess. Cerebral palsy: - Per family, from . Non-verbal at baseline. CAD - prior DC 2005 - Continue home aspirin and metoprolol. GERD - Continue home Zantac. Fecal impactions/constipation - Patient had a bowel movement yesterday. No family concern for this acutely. Continue home bowel regimen of docusate, lactulose, and mineral oil. Code status: DNR Diet: Heart healthy. DVT prophy: Not on DVT PPx PT/OT: Deferred. Dispo: MedSurg. (2) Sepsis: (3) Coronary artery disease: (4) Cerebral palsy: Supervising Physician Co-Signing Physician Notes Resident Physician Supervision Note: I independently interviewed and examined the patient and verified the weiss history and physical, reviewed labs and image studies, discussed the case with the resident Dr. Elmore and agree with the findings and care plan. Subjective As documented in todays H and P Review of Systems Unobtainable due to cognitive status Physical Exam Vital Signs (Past 24 Hours): Last Vital Signs Temp 36.5 C 11/07/18 07:57 Pulse 95 H 11/07/18 07:57 Resp 20 11/07/18 07:57 BP 94/71 L 11/07/18 07:57 Pulse Ox 98 11/07/18 07:57 Constitutional: no acute distress Patient with cerebral palsy and some limb and extremity contractions. He appears to be resting comfortably, nonverbal, non communicative with me at all. Mother present at bedside Eyes: PERRL, conjunctivae normal, anicteric sclerae Respiratory: normal respiratory effort; no respiratory distress and no labored breathing Auscultation: lungs clear to auscultation bilaterally Possibly some decreased air entry at lower right lung field, no crackles or wheezing. Cardiovascular: Rate/Rhythm: regular rate and regular rhythm Heart Sounds: normal S1 and normal S2 Extremities: no edema Gastrointestinal (Abdomen): Percussion/Palpation: abdomen soft; no guarding and abdomen not rigid Neurologic: PERRL, EOMI, accommodation nl, no face palsy, no dysarthria Psychiatric: Orientation: alert; + not oriented x 3, + not oriented to person, + not oriented to place and + not oriented to time Resident Activity Tracking Resident Involvement: Resident Care Provided Care Provided: Adult Hospital Medicine (1) Sepsis Sepsis type: sepsis due to unspecified organism Qualified Code(s): A41.9 - Sepsis, unspecified organism (2) Pneumonia Laterality: right Lung location: lower lobe of lung Pneumonia type: due to unspecified organism Qualified Code(s): J18.1 - Lobar pneumonia, unspecified organism
[2018-11-07] MEDS: MINERAL OIL 30 ML UDC PO SCH (12:33)
[2018-11-07] MEDS: DOCUSATE SODIUM 100 MG CAP PO SCH ×2 (12:33→20:09)
[2018-11-07] MEDS: ASPIRIN 81 MG ECTAB PO SCH (12:33)
[2018-11-07] MEDS: LACTULOSE SYRUP 20 GM/30 ML UDC PO SCH (12:33)
[2018-11-07] MEDS: CHOLECALCIFEROL 1,000 UNITS TAB PO SCH (12:34)
[2018-11-07] MEDS: MULTIVITAMIN TAB PO SCH (12:34)
[2018-11-07] MEDS: AMPICILLIN/SULBACTAM SOD 1,500 MG in 0.9 % SODIUM CHLORIDE 100 ML IV SCH ×2 (14:04→20:08)
[2018-11-07] MEDS ORDERED: PNEUMOCOCCAL POLYSACCHARIDES 25 MCG/0.5 ML VIAL/SYR IM ONE (15:15)
[2018-11-07] MEDS ORDERED: PNEUMOCOCCAL ADMINISTRATION CHARGE ONE (15:15)
[2018-11-08] MEDS: AMPICILLIN/SULBACTAM SOD 1,500 MG in 0.9 % SODIUM CHLORIDE 100 ML IV SCH ×4 (02:12→19:44)
[2018-11-08 05:49] LABS: Basophils # (auto) 0.02 K/uL (0-0.2); Basophils % (auto) 0.3 %; Eosinophils # (auto) 0.16 K/uL (0-0.5); Eosinophils % (auto) 2.7 %; Hematocrit (blood only) 36.9 % (42-52); Immature Granulocytes # (auto) 0.01 K/uL (0.00-0.02); Immature Granulocytes % (auto) 0.2 %; Lymphocytes # (auto) 0.75 K/uL (1.2-3.4); Lymphocytes % (auto) 12.4 %; Mean Corpuscular Hgb Conc 32.5 g/dL (32-36); Mean Corpuscular Volume 93.2 fL (80-100); Mean Platelet Volume 8.8 fL (7.4-10.4); Monocytes # (auto) 0.46 K/uL (0.11-0.59); Monocytes % (auto) 7.6 %; Neutrophils # (auto) 4.63 K/uL (1.4-6.5); Neutrophils % (auto) 76.8 %; Platelet Count 220 K/uL (130-400); RDW Coefficient of Variation 14.7 % (11.5-14.5); RDW Standard Deviation 50.2 fL (36.4-46.3); Red Blood Count 3.96 M/uL (4.7-6.1); White Blood Count 6.03 K/uL (4.8-10.8)
[2018-11-08 06:22] LABS: Blood Urea Nitrogen 15 mg/dl (7-18); Calcium 8.2 mg/dl (8.5-10.1); Carbon Dioxide 19 mmol/L (21-32); Chloride 113 mmol/L (98-107); Creatinine Clr Calc Pharmacy 127.4 ml/min; Est GFR (African American) > 150.0; Est GFR (Non-African American) 144.7; Glucose 35 mg/dl (70-99); Potassium 3.5 mmol/L (3.5-5.1); Sodium 141 mmol/L (136-145)
[2018-11-08] MEDS ORDERED: DEXTROSE 50% 50 ML SYRINGE IV ONE ×2 (06:30→12:19)
[2018-11-08] MEDS ORDERED: DEXTROSE 50% 50 ML SYRINGE IV STA ×2 (06:38→12:13)
[2018-11-08] MEDS: LACTULOSE SYRUP 20 GM/30 ML UDC PO SCH (09:21)
[2018-11-08] MEDS: DOCUSATE SODIUM 100 MG CAP PO SCH ×2 (09:22→20:13)
[2018-11-08] MEDS: MULTIVITAMIN TAB PO SCH (09:22)
[2018-11-08] MEDS: MINERAL OIL 30 ML UDC PO SCH (09:22)
[2018-11-08] MEDS: ASPIRIN 81 MG ECTAB PO SCH (09:22)
[2018-11-08] MEDS: METOPROLOL TARTRATE 25 MG TAB PO SCH ×2 (09:22→20:13)
[2018-11-08] MEDS: CHOLECALCIFEROL 1,000 UNITS TAB PO SCH (09:23)
[2018-11-08] MEDS: SODIUM CHLORIDE 0.9% 1000ML 1,000 ML IV SCH (09:32)
--- NOTE | 2018-11-08 11:21 | Family Medicine Progress Note ---
Date of Service November 08, 2018 Assessment & Plan (1) Pneumonia: (1) Pneumonia: 68-year-old male was admitted on 07 November 2018 for suspected pneumonia. Aspiration Pneumonia : - One day history of cough. - Has remained afebrile. Blood pressure improved from most recent recorded valu e yesterday to 124/77, previously had some decreased values of systolic in 90s and diastolic ranging from 51-78 . Tachycardia improved 89 bpm from most recent recorded value yesterday late afternoon. Tachypnea improved as well. - Previously On Azithromycin and Ceftriaxone. Yesterday was started on Unasyn and received 4 doses to date. - Concerned for aspiration speech therapy consulted and patient found to have no swallow reflex discernible -Patient made NPO and mother does not want any tube feeding. Will keep NPO for now treat his pneumonia and reassess. - lungs appear clear on auscultation today Cerebral palsy: - Per family, from . Non-verbal at baseline. CAD - prior [place] 2005 - Continue home aspirin and metoprolol. GERD - Continue home Zantac. Fecal impactions/constipation - Patient had a bowel movement yesterday. No family concern for this acutely. Continue home bowel regimen of docusate, lactulose, and mineral oil. Hypoglyemia - Glucose value of 35 this morning at 6:20am. Patient received Dextrose 50mL IV. Repeat BSG check 213. - most likely from NPO, continue to follow, consider restarting diet tomorrow or Friday - This afternoon, contacted for another episode of hypoglycemia. Another dose of Dextrose 50mL IV ordered STAT. Fluids changed to D5W with NSS to provide for carbohydrates. Code status: DNR Diet: Heart healthy. DVT prophy: Not on DVT PPx PT/OT: Deferred. Dispo: MedSurg. (2) Sepsis: (3) Coronary artery disease: (4) Cerebral palsy: (5) Hypoglycemia: Supervising Physician Co-Signing Physician Notes Resident Physician Supervision Note: I independently interviewed and examined the patient and verified the weiss history and physical, reviewed labs and image studies, discussed the case with the resident Dr. Jackson and agree with the findings and care plan. Subjective History Limited by: Non-verbal. No worsening changes from neuro baseline reported by caregiver at bedside. No acute events overnight. Physical Exam Vital Signs (Past 24 Hours): Last Vital Signs Temp 36.1 C L 11/07/18 16:00 Pulse 86 11/07/18 16:00 Resp 20 11/07/18 16:00 BP 124/77 11/07/18 16:00 Pulse Ox 95 11/07/18 16:00 Constitutional: severe chronic extremity contractures noted Respiratory: normal respiratory effort, lungs clear to auscultation no respiratory distress Cardiovascular: Rate/Rhythm: regular rate and regular rhythm Gastrointestinal (Abdomen): Inspection/Auscultation: normal bowel sounds Percussion/Palpation: abdomen nontender Skin: no rashes, warm and dry Neurologic: at baseline per caregiver, opens eyes to voice Psychiatric: Orientation: alert Results & Data Laboratory Results Laboratory Results - last 24 hr 11/08/18 11/08/18 11/08/18 05:18 05:18 06:52 WBC 6.03 RBC 3.96 L Hgb 12.0 L Hct 36.9 L MCV 93.2 MCH 30.3 MCHC 32.5 RDW Std Deviation 50.2 H RDW Coeff of Zain 14.7 H Plt Count 220 MPV 8.8 Immature Gran % (Auto) 0.2 Neut % (Auto) 76.8 Lymph % (Auto) 12.4 Hardy % (Auto) 7.6 Eos % (Auto) 2.7 Baso % (Auto) 0.3 Immature Gran # (Auto) 0.01 Neut # (Auto) 4.63 Lymph # (Auto) 0.75 L Hardy # (Auto) 0.46 Eos # (Auto) 0.16 Baso # (Auto) 0.02 Sodium 141 Potassium 3.5 Chloride 113 H Carbon Dioxide 19 L Anion Gap 9.0 BUN 15 Creatinine 0.26 L Est Cr Clr Drug Dosing 127.4 Est GFR ( Amer) > 150.0 Est GFR (Non-Af Amer) 144.7 BUN/Creatinine Ratio 56.0 H Glucose 35 L* POC Glucose 213 H Calcium 8.2 L 11/08/18 08:23 WBC RBC Hgb Hct MCV MCH MCHC RDW Std Deviation RDW Coeff of Zain Plt Count MPV Immature Gran % (Auto) Neut % (Auto) Lymph % (Auto) Hardy % (Auto) Eos % (Auto) Baso % (Auto) Immature Gran # (Auto) Neut # (Auto) Lymph # (Auto) Hardy # (Auto) Eos # (Auto) Baso # (Auto) Sodium Potassium Chloride Carbon Dioxide Anion Gap BUN Creatinine Est Cr Clr Drug Dosing Est GFR ( Amer) Est GFR (Non-Af Amer) BUN/Creatinine Ratio Glucose POC Glucose 139 H Calcium Medications Administered Aspirin (Ecotrin Ectab) 81 mg PO DAILY SH[facility]Y Stop: 12/07/18 08:59 Last Admin: 11/08/18 09:22 Dose: Not Given Documented by: [id number] Admin: 11/07/18 12:33 Dose: Not Given Documented by: [id number] Docusate Sodium (Colace) 100 mg PO BID SHAYY Stop: 12/07/18 08:59 Last Admin: 11/08/18 09:22 Dose: Not Given Documented by: [id number] Admin: 11/07/18 20:09 Dose: Not Given Documented by: [id number] Admin: 11/07/18 12:33 Dose: Not Given Documented by: [id number] Sodium Chloride (Nss 1000ml) 1,000 mls @ 70 mls/hr IV .[id number] SHAYY Stop: 12/07/18 03:59 Last Admin: 11/08/18 09:32 Dose: 70 mls/hr Documented by: [id number] Infusion: 11/08/18 09:30 Dose: 70 mls/hr Documented by: [id number] Admin: 11/07/18 20:08 Dose: 70 mls/hr Documented by: [id number] Infusion: 11/07/18 18:44 Dose: 70 mls/hr Documented by: [id number] Admin: 11/07/18 04:26 Dose: 70 mls/hr Documented by: [id number] Ampicillin Sodium/Sulbactam Sodium 1,500 mg/ Sodium Chloride 104 mls @ 200 mls/hr IV Q6H [facility] Stop: 11/14/18 13:59 Last Admin: 11/08/18 09:32 Dose: 200 mls/hr Documented by: [id number] Infusion: 11/08/18 02:47 Dose: 0 mls/hr Documented by: [id number] Admin: 11/08/18 02:12 Dose: 200 mls/hr Documented by: [id number] Infusion: 11/07/18 20:40 Dose: 0 mls/hr Documented by: [id number] Admin: 11/07/18 20:08 Dose: 200 mls/hr Documented by: [id number] Infusion: 11/07/18 14:40 Dose: 0 mls/hr Documented by: [id number] Admin: 11/07/18 14:04 Dose: 200 mls/hr Documented by: [id number] Lactulose (Chronulac) 10 gm PO DAILY [facility] Stop: 12/07/18 08:59 Last Admin: 11/08/18 09:21 Dose: Not Given Documented by: [id number] Admin: 11/07/18 12:33 Dose: Not Given Documented by: [id number] Metoprolol Tartrate (Lopressor) 25 mg PO BID SHAYY Stop: 12/07/18 08:59 Last Admin: 11/08/18 09:22 Dose: Not Given Documented by: [id number] Admin: 11/07/18 20:09 Dose: Not Given Documented by: [id number] Admin: 11/07/18 08:34 Dose: 25 mg Documented by: [id number] Mineral Oil (Mineral Oil) 10 ml PO DAILY [facility]Y Stop: 12/07/18 08:59 Last Admin: 11/08/18 09:22 Dose: Not Given Documented by: [id number] Admin: 11/07/18 12:33 Dose: Not Given Documented by: [id number] Multivitamins (Multivitamin Tab) 1 tab PO DAILY SHAYY Stop: 12/07/18 08:59 Last Admin: 11/08/18 09:22 Dose: Not Given Documented by: [id number] Admin: 11/07/18 12:34 Dose: Not Given Documented by: [id number] Ranitidine HCl (Zantac) 150 mg PO BID [facility] Stop: 12/07/18 08:59 Last Admin: 11/08/18 09:23 Dose: Not Given Documented by: [id number] Admin: 11/07/18 20:09 Dose: Not Given Documented by: [id number] Admin: 11/07/18 08:34 Dose: 150 mg Documented by: [id number] Vitamin D (Vitamin D3) 1,000 units PO DAILY [facility] Stop: 12/07/18 08:59 Last Admin: 11/08/18 09:23 Dose: Not Given Documented by: [id number] Admin: 11/07/18 12:34 Dose: Not Given Documented by: [id number] (1) Sepsis Sepsis type: sepsis due to unspecified organism Qualified Code(s): A41.9 - Sepsis, unspecified organism (2) Pneumonia Laterality: right Lung location: lower lobe of lung Pneumonia type: due to unspecified organism Qualified Code(s): J18.1 - Lobar pneumonia, unspecified organism
[2018-11-08] MEDS: D5W AND NSS 1,000 ML IV SCH (12:21)
[2018-11-08] MEDS: ACETAMINOPHEN 65 ML IV SCH (21:16)
[2018-11-09] MEDS: AMPICILLIN/SULBACTAM SOD 1,500 MG in 0.9 % SODIUM CHLORIDE 100 ML IV SCH ×4 (01:24→21:08)
[2018-11-09] MEDS: ACETAMINOPHEN 65 ML IV SCH ×5 (01:27→22:45)
[2018-11-09] MEDS: D5W AND NSS 1,000 ML IV SCH ×2 (03:21→17:19)
[2018-11-09 05:44] LABS: Basophils # (auto) 0.01 K/uL (0-0.2); Basophils % (auto) 0.2 %; Eosinophils # (auto) 0.16 K/uL (0-0.5); Eosinophils % (auto) 2.8 %; Hematocrit (blood only) 34.8 % (42-52); Hemoglobin 11.5 g/dL (14.0-18.0); Immature Granulocytes # (auto) 0.01 K/uL (0.00-0.02); Immature Granulocytes % (auto) 0.2 %; Lymphocytes # (auto) 0.68 K/uL (1.2-3.4); Mean Corpuscular Volume 90.6 fL (80-100); Mean Platelet Volume 8.6 fL (7.4-10.4); Monocytes # (auto) 0.61 K/uL (0.11-0.59); Monocytes % (auto) 10.8 %; Platelet Count 229 K/uL (130-400); RDW Coefficient of Variation 14.6 % (11.5-14.5); RDW Standard Deviation 48.1 fL (36.4-46.3); Red Blood Count 3.84 M/uL (4.7-6.1); White Blood Count 5.67 K/uL (4.8-10.8)
[2018-11-09 06:21] LABS: BUN Creatinine Ratio 19.7 (10-20); Blood Urea Nitrogen 5 mg/dl (7-18); Calcium 7.9 mg/dl (8.5-10.1); Carbon Dioxide 23 mmol/L (21-32); Chloride 117 mmol/L (98-107); Creatinine Clr Calc Pharmacy 122.7 ml/min; Est GFR (African American) > 150.0; Est GFR (Non-African American) 142.4; Glucose 99 mg/dl (70-99); Sodium 144 mmol/L (136-145)
--- NOTE | 2018-11-09 08:11 | Family Medicine Progress Note ---
Date of Service November 09, 2018 Assessment & Plan (1) Pneumonia: 68-year-old male was admitted on 07 November 2018 for suspected pneumonia. Continue diet with speech and aspiration precautions. Aspiration Pneumonia : -history of cough. -On Unasyn -Per family continue oral feeds, as one remaining quality of life measure -Continue aspiration precautions. Hypokalemia -replaced with 4 bags IV today for potassium of 3.0 Cerebral palsy: - Per family, from . Non-verbal at baseline. CAD - prior [place] 2005 - Continue home aspirin and metoprolol. GERD - Continue home Zantac. Fecal impactions/constipation -Continue home bowel regimen of docusate, lactulose, and mineral oil. Hypoglyemia -Fluids changed to D5W with NSS to provide for carbohydrates. -On heart healthy diet. Code status: DNR Diet: Heart healthy. DVT prophy: Not on DVT PPx PT/OT: Deferred. Dispo: MedSurg. Supervising Physician Co-Signing Physician Notes I personally examined the patient and verified all weiss points of history and exam, discussed case, and agree with decision making with Dr [place]en[place] No HPI or review of systems obtainable from patient. Family present and I know that her goal would be to take him home as soon as is feasible. We addressed swallowing difficulties, they reiterate no PEG tube, we discussed eating and risk of choking/aspiration events and they expressed a good understanding of this as well as how risk and benefit includes quality of life. They state quite clearly that his quality of life would be drastically adversely impacted with any type of n.p.o. strategy. Vitals noted, in general he is in bed in no distress. His breathing appears to be unlabored. No accessory muscle use. Skin shows no rashes no pallor or icterus. Aspiration pneumoniaappears to be improving. After careful discussion of risks and benefits with the family, they are understanding of the situation and their plan to value quality of life over maximizing reduction of aspiration risk appears to be quite reasonable. Carefully advance diet so that nursing can supervise them on safe swallow strategies towards home tomorrow barring any setbacks. Functional quadriplegiarelated to his cerebral palsy. Continue supportive care. otherwise as above Subjective Pt is eating as family requests despite aspiration risk. Family informed of danger but feels like it is one of the few quality of life options that remain for this patient. Improving. Review of Systems All systems reviewed & are unremarkable except as noted in HPI & below and Unobtainable due to cognitive status Physical Exam Vital Signs (Past 24 Hours): Last Vital Signs Temp 36.4 C L 11/09/18 07:35 Pulse 96 H 11/09/18 07:35 Resp 18 11/09/18 07:35 BP 130/81 11/09/18 07:35 Pulse Ox 94 11/09/18 07:35 General: Pt with body contracture. HEENT: Eyes open Chest: Nontender to palpation. CV: RRR, Normal s1, s2. Resp: Breath sounds clear bilaterally Abdomen: Soft, nontender Extremities: No edema. Results & Data Laboratory Results Laboratory Results - last 24 hr 11/09/18 11/09/18 11/09/18 01:27 05:17 05:17 WBC 5.67 RBC 3.84 L Hgb 11.5 L Hct 34.8 L MCV 90.6 MCH 29.9 MCHC 33.0 RDW Std Deviation 48.1 H RDW Coeff of Zain 14.6 H Plt Count 229 MPV 8.6 Immature Gran % (Auto) 0.2 Neut % (Auto) 74.0 Lymph % (Auto) 12.0 [place] % (Auto) 10.8 Eos % (Auto) 2.8 Baso % (Auto) 0.2 Immature Gran # (Auto) 0.01 Neut # (Auto) 4.20 Lymph # (Auto) 0.68 L [place] # (Auto) 0.61 H Eos # (Auto) 0.16 Baso # (Auto) 0.01 Sodium 144 Potassium 3.0 L Chloride 117 H Carbon Dioxide 23 Anion Gap 4.0 BUN 5 L D Creatinine 0.27 L Est Cr Clr Drug Dosing 122.7 Est GFR ( Amer) > 150.0 Est GFR (Non-Af Amer) 142.4 BUN/Creatinine Ratio 19.7 Glucose 99 POC Glucose 130 H Calcium 7.9 L 11/09/18 11/09/18 11:54 18:24 WBC RBC Hgb Hct MCV MCH MCHC RDW Std Deviation RDW Coeff of Zain Plt Count MPV Immature Gran % (Auto) Neut % (Auto) Lymph % (Auto) [place] % (Auto) Eos % (Auto) Baso % (Auto) Immature Gran # (Auto) Neut # (Auto) Lymph # (Auto) [place] # (Auto) Eos # (Auto) Baso # (Auto) Sodium Potassium Chloride Carbon Dioxide Anion Gap BUN Creatinine Est Cr Clr Drug Dosing Est GFR ( Amer) Est GFR (Non-Af Amer) BUN/Creatinine Ratio Glucose POC Glucose 93 126 H Calcium Medications Administered Home Medications aspirin 81 mg PO DAILY 11/07/18 [History Confirmed 11/07/18] cholecalciferol (vitamin D3) [Vitamin D3] 1,000 unit PO DAILY 11/07/18 [History Confirmed 11/07/18] docusate sodium 100 mg PO BID 11/07/18 [History Confirmed 11/07/18] lactulose 10 g PO DAILY 11/07/18 [History Confirmed 11/07/18] metoprolol tartrate 25 mg PO BID 11/07/18 [History Confirmed 11/07/18] mineral oil 2 tsp DAILY 11/07/18 [History Confirmed 11/07/18] multivitamin 1 tab PO DAILY 11/07/18 [History Confirmed 11/07/18] ranitidine HCl [Zantac] 150 mg PO BID 11/07/18 [History Confirmed 11/07/18] Active Medications Acetaminophen (Tylenol) 650 mg PO Q4H PRN PRN Reason: pain/fever Stop: 12/07/18 03:49 Aspirin (Ecotrin Ectab) 81 mg PO DAILY [facility] Stop: 12/07/18 08:59 Last Admin: 11/09/18 09:04 Dose: Not Given Documented by: Docusate Sodium (Colace) 100 mg PO BID [facility] Stop: 12/07/18 08:59 Last Admin: 11/09/18 09:04 Dose: Not Given Documented by: Ampicillin Sodium/Sulbactam Sodium 1,500 mg/ Sodium Chloride 104 mls @ 200 mls/hr IV Q6H [facility] Stop: 11/14/18 13:59 Last Infusion: 11/09/18 17:18 Dose: Infused Documented by: Dextrose/Sodium Chloride (D5w And Nss) 1,000 mls @ 70 mls/hr IV .[id number] [facility] Stop: 12/08/18 12:14 Last Admin: 11/09/18 17:19 Dose: 70 mls/hr Documented by: Acetaminophen (Ofirmev) 65 mls @ 200 mls/hr IV Q8H [facility] Stop: 12/08/18 20:59 Last Infusion: 11/09/18 17:18 Dose: Infused Documented by: Lactulose (Chronulac) 10 gm PO DAILY SHAYY Stop: 12/07/18 08:59 Last Admin: 11/09/18 09:04 Dose: Not Given Documented by: Metoprolol Tartrate (Lopressor) 25 mg PO BID SHAYY Stop: 12/07/18 08:59 Last Admin: 11/09/18 09:04 Dose: Not Given Documented by: Mineral Oil (Mineral Oil) 10 ml PO DAILY SHAYY Stop: 12/07/18 08:59 Last Admin: 11/09/18 09:04 Dose: Not Given Documented by: Multivitamins (Multivitamin Tab) 1 tab PO DAILY SHAYY Stop: 12/07/18 08:59 Last Admin: 11/09/18 09:04 Dose: Not Given Documented by: Ondansetron HCl (Zofran) 4 mg IV Q6H PRN PRN Reason: Nausea Stop: 12/07/18 03:49 Ranitidine HCl (Zantac) 150 mg PO BID SHAYY Stop: 12/07/18 08:59 Last Admin: 11/09/18 09:04 Dose: Not Given Documented by: Vitamin D (Vitamin D3) 1,000 units PO DAILY SHAYY Stop: 12/07/18 08:59 Last Admin: 11/09/18 09:04 Dose: Not Given Documented by: (1) Pneumonia Laterality: right Lung location: lower lobe of lung Pneumonia type: due to unspecified organism Qualified Code(s): J18.1 - Lobar pneumonia, unspecified organism
[2018-11-09] MEDS: MINERAL OIL 30 ML UDC PO SCH (09:04)
[2018-11-09] MEDS: ASPIRIN 81 MG ECTAB PO SCH (09:04)
[2018-11-09] MEDS: LACTULOSE SYRUP 20 GM/30 ML UDC PO SCH (09:04)
[2018-11-09] MEDS: DOCUSATE SODIUM 100 MG CAP PO SCH ×2 (09:04→20:09)
[2018-11-09] MEDS: MULTIVITAMIN TAB PO SCH (09:04)
[2018-11-09] MEDS: METOPROLOL TARTRATE 25 MG TAB PO SCH ×2 (09:04→20:09)
[2018-11-09] MEDS: CHOLECALCIFEROL 1,000 UNITS TAB PO SCH (09:04)
[2018-11-09] MEDS: POTASSIUM CHLORIDE / WTR 10 MEQ/100 ML PLCT IV SCH ×4 (10:23→17:56)
[2018-11-10 00:32] LABS: Hematocrit (blood only) 32.7 % (42-52); Hemoglobin 10.9 g/dL (14.0-18.0)
--- NOTE | 2018-11-10 00:42 | Progress Note ---
Date of Service November 10, 2018 Assessment & Plan (1) Coffee ground emesis: Subjective: Reported to call regarding coffee ground emesis. Oropharynx was effectively cleared prior to arrival on the floor. Objective: vitals stable, sating well on RA, CXR did not show any new findings. CTAB. Gastric contents appeared blood tinged, with coffee ground sediment Assessment: Concern for UGIB Plan: -CXR, H/H -Hold aspirin -Push pepcid -Continue Unasyn -Call with H/H and repeat episodes Physical Exam Vital Signs (Past 24 Hours): Last Vital Signs Temp 36.3 C L 11/10/18 00:11 Pulse 128 H 11/10/18 00:11 Resp 22 11/10/18 00:11 BP 139/92 11/10/18 00:11 Pulse Ox 95 11/10/18 00:11
[2018-11-10] MEDS ORDERED: FAMOTIDINE 20 MG in SYRINGE 3 ML IV SCH (01:00)
[2018-11-10] MEDS: AMPICILLIN/SULBACTAM SOD 1,500 MG in 0.9 % SODIUM CHLORIDE 100 ML IV SCH ×3 (02:28→14:27)
[2018-11-10 06:11] LABS: Basophils # (auto) 0.01 K/uL (0-0.2); Basophils % (auto) 0.1 %; Eosinophils # (auto) 0.09 K/uL (0-0.5); Eosinophils % (auto) 1.2 %; Hematocrit (blood only) 29.7 % (42-52); Hemoglobin 9.9 g/dL (14.0-18.0); Immature Granulocytes # (auto) 0.02 K/uL (0.00-0.02); Immature Granulocytes % (auto) 0.3 %; Lymphocytes # (auto) 1.23 K/uL (1.2-3.4); Lymphocytes % (auto) 16.2 %; Mean Corpuscular Hgb Conc 33.3 g/dL (32-36); Mean Corpuscular Volume 90.5 fL (80-100); Mean Platelet Volume 8.7 fL (7.4-10.4); Monocytes # (auto) 0.76 K/uL (0.11-0.59); Neutrophils # (auto) 5.47 K/uL (1.4-6.5); Neutrophils % (auto) 72.2 %; Platelet Count 251 K/uL (130-400); RDW Coefficient of Variation 14.4 % (11.5-14.5); RDW Standard Deviation 47.8 fL (36.4-46.3); Red Blood Count 3.28 M/uL (4.7-6.1); White Blood Count 7.58 K/uL (4.8-10.8)
--- NOTE | 2018-11-10 06:34 | XRay Report ---
XR chest 1V portable CLINICAL HISTORY: emesis, concern for aspiration dyspnea COMPARISON STUDY: 11/06/2018 FINDINGS: Interval development of mild bibasilar infiltrative change. Mid and upper lungs are clear. Increased colonic bowel pattern. Probable rectal fecal impaction. IMPRESSION: 1. Mild bibasilar infiltrates. 2. Mild nonobstructive ileus with evidence for a fecal impaction. The above report was generated using voice recognition software. It may contain grammatical, syntax or spelling errors. Electronically signed by: Prme Hightower M.D. 11/10/2018 6:33 AM
[2018-11-10 06:36] LABS: BUN Creatinine Ratio 120.9 (10-20); Blood Urea Nitrogen 24 mg/dl (7-18); Calcium 7.4 mg/dl (8.5-10.1); Carbon Dioxide 21 mmol/L (21-32); Chloride 120 mmol/L (98-107); Creatinine Clr Calc Pharmacy 165.7 ml/min; Est GFR (African American) > 150.0; Est GFR (Non-African American) > 150.0; Glucose 108 mg/dl (70-99); Potassium 3.3 mmol/L (3.5-5.1); Sodium 146 mmol/L (136-145)
[2018-11-10] MEDS: ACETAMINOPHEN 65 ML IV SCH (06:56)
[2018-11-10] MEDS: D5W AND NSS 1,000 ML IV SCH (08:05)
[2018-11-10] MEDS: METOPROLOL TARTRATE 25 MG TAB PO SCH (09:20)
[2018-11-10] MEDS: LACTULOSE SYRUP 20 GM/30 ML UDC PO SCH (09:20)
[2018-11-10] MEDS: DOCUSATE SODIUM 100 MG CAP PO SCH (09:20)
[2018-11-10] MEDS: MINERAL OIL 30 ML UDC PO SCH (09:21)
[2018-11-10] MEDS: MULTIVITAMIN TAB PO SCH (09:21)
[2018-11-10] MEDS: CHOLECALCIFEROL 1,000 UNITS TAB PO SCH (09:21)
--- NOTE | 2018-11-10 15:53 | Discharge Summary ---
Date of Service November 10, 2018 Admission HPI Per Admitting Provider 68-year-old male was brought in by his family with concerns for difficulty breathing. Of note, patient has cerebral palsy since and is nonverbal. All of the history comes from the patient's family at bedside. Patient's sister is the primary caregiver but the patient's mother as well as the sister's are present to provide background. Per sister, the patient was noted to have some difficulty breathing this evening. Apparently this is rather sudden onset as it was not noted earlier today and he had no difficulty eating dinner. She does note that he has had an on/off cough for about 1 month. He also felt warm today. She denies any changes in his overall interaction or behavior. No known emesis or history of aspiration. Does have a history of constipation but had a normal bowel movement today. They note that this last hospitalization was around 2005 during the time of his MO. Otherwise he does visit the hospital for dental work and has routine outpatient primary care visits. No known direct sick contacts. No other acute caregiver concerns. Past medical history includes cerebral palsy, CAD, prior MO in 2005, GERD, constipation. Past surgical history: None. Social history notable for living with his sister (as primary caregiver) as well as his mother. Admission Exam Per Admitting Provider Physical Exam: General Appearance: Awake, appears alert and somewhat communicative with family at bedside, does not appear in acute distress. Cachectic overall. CV: +S1S2 regular tachycardia, no murmur. Pulm: Questionable decreased breath sounds at the right base. Abdomen: +BS, soft, no obvious facial changes on palpation, non-distended. Neuro / MSK: Nonverbal at baseline. Generalized extremity contractures. Smiles with family members talking to him. Principal Diagnosis Aspiration pneumonia Discharge Exam General: Pt with body contractures. HEENT: Eyes, oropharynx open Chest: Nontender to palpation. CV: RRR, Normal s1, s2. Resp: Breath sounds clear bilaterally Abdomen: Soft, nontender Extremities: No edema. Discharge Data Allergies Allergy/AdvReac Type Severity Reaction Status Date / Time No Known Allergies Allergy Unverified 11/07/18 00:13 Consultations 11/07/18 00:50 ED Decision to Admit Stat Hospital Course (1) Pneumonia: Mr. William is a 68-year-old male with cerebral palsy who was admitted on 07 November 2018 for suspected pneumonia and was diagnosed with aspiration pneumonia. He was discharged on November 10 to the care of his family. Aspiration Pneumonia: -Per speech recs, pt with very little swallow reflex. -Family continued oral feeds after extensive discussion as quality of life measure. -Were content to continue aspiration precautions at home on discharge. -Declined NG tube/PEG/TPN as overall risk/benefit and quality of life were not in line with family goals for patient, after repeated discussions to ensure understanding. -Treated with Unasyn while hospitalized and discharged with Augmentin suspension for an additional 7 days. Coffee Ground Emesis -1 episode while hospitalized. -Likely gastritis given one-time episode with no further -Family declined further scope workup due to quality of life/potential harm to pt. -Advised use of Prilosec OTC upon discharge in addition to Zantac for 4-8 weeks depending on clinical progress. -F/U with PCP Hypokalemia -resolved on discharged -treated with 4 bags IV potassium for potassium of 3.0 Cerebral palsy: - Per family, from . Non-verbal at baseline. CAD - prior [place] 2005 - Continued home aspirin and metoprolol. GERD -Continued home Zantac. Fecal impactions/constipation -Continued home bowel regimen of docusate, lactulose, and mineral oil. Hypoglycemia -Fluids: D5W with NSS to provide for carbohydrates. -heart healthy diet. Total Time Total Time Spent Total Time Spent (In Minutes): >30 Discharge Plan Discharge Items Patient Disposition: Home - Self-Care Reason For Visit: PNEUMONIA, SEPSIS Discharge Diagnosis: aspiration pneumonia (see below otherwise) Discharge Goals: Decrease discomfort, Diagnostic testing and Therapeutic intervention Activity: Resume your previous activity Non-emergency contact: Primary Care Provider Call non-emergency contact if: you have any medication questions, your symptoms worsen and your temperature is above 101 Follow-up/Referrals: Vidhya Plascencia, [Primary Care Provider] - Diet: See below Addtl Provider Instructions: aspiration pneumonia -a pneumonia caused by aspirating food into lungs instead of stomach -this was caused by a significant difficulty in swallowing likely related to the chronic neurologic disease related to cerebral palsy -fortunately it got better quite quickly -we'll finish out a course of antibiotics with augmentin (we'll prescribe the liquid to make it easier for him to swallow) -as we discussed, the aspiration unfortunately doesn't get better; and doing major measures such as putting in a feeding tube only somewhat reduce the risk of having aspiration events due to having reflux (tube feeding foods refluxing back up) aspirations instead of "down the wrong pipe" (oropharyngeal) aspirations. the main goals as we discussed, for most patients, are trying to reduce the chances of aspiration events as best as possible, while not robbing people of quality of life. (in addition to not reducing aspiration events by that much, putting in feeding tubes also comes with the idea of not allowing someone to eat or drink anything by mouth, which is quite dehumanzing) -to reduce risks of aspiration as best as possible - have him upright to about 90 degrees when he's eating, and keep him upright for a good 45 minutes after he's done (this allows gravity to help keep things in his stomach) -feed him so that he eats slowly, and alternate between solids and liquids -avoid straws - they allow people to aspirate more easily -pureed foods are easier to handle in the mouth and swallow -- so if he seems to do OK eating things that are more pureed in consistency, it should help reduce risk of aspiration some to reduce the risk of an aspiration event becoming a pneumonia, try to keep mouth and teeth as clean as they possibly can be the vomiting blood that happened in the middle of the night was almost certainly due to gastritis (or a brush burn of the lining of the stomach - often seen when people have been sick and under physical stress) -- since it's not evolved into anything over the last 12 hours, it's highly unlikely to be anything more significant than that. as we discussed, pursuing this most aggressively would entail a bath attendant doing a scope to look at his stomach, but given that putting him through more invasive procedures and keeping in the hospital longer seems counter to his best interests, and statistically speaking the most likely result from a scope would be medical recommendations of holding off on the aspirin and escalating his stomach medications to protonix instead of the zantac for ~4-8 weeks then reducing back to the zantac, we'll try to spare him from potentially unnecessary procedures and treat as such: -hold off on the aspirin for the foreseeable future -take protonix (pantoprazole) 40mg twice a day for a month, then as his PCP follows up, the expectation is that in a month or so it will likely be OK to drop back down to the zantac Prescriptions: New pantoprazole [Protonix] 40 mg tablet,delayed release (DR/EC) 40 mg PO BID Qty: 60 RF: 0 amoxicillin-pot clavulanate [Augmentin] 250-62.5 mg/5 mL suspension for reconstitution 10 ml PO BID 7 Days Qty: 140 RF: 0 Continued metoprolol tartrate 25 mg Tablet 25 mg PO BID RF: 0 lactulose 10 gram/15 mL Solution 10 g PO DAILY RF: 0 docusate sodium 100 mg Tablet 100 mg PO BID RF: 0 cholecalciferol (vitamin D3) [Vitamin D3] 1,000 unit Tablet 1,000 unit PO DAILY RF: 0 multivitamin Tablet 1 tab PO DAILY RF: 0 mineral oil Oil 2 tsp DAILY RF: 0 Discontinued ranitidine HCl [Zantac] 150 mg Tablet 150 mg PO BID RF: 0 aspirin 81 mg Tablet,Delayed Release (Dr/Ec) 81 mg PO DAILY RF: 0 Stand-Alone Forms: [facility] Discharge Orders: Discharge Order (Routine); Ordered 11/10/18 Ordered By: Nikhil Peters Admission Data Admit Date/Time: 11/07/18 02:41 Attending Provider: Nikhil Peters Admit Provider: Aime Casillas Primary Care Provider: Vidhya Plascencia Other Providers: Jennifer Zamudio ; Angeline Tobin Service: Medical Other Interventions: Discharge Summary Assessment (RN) Last Done: 11/10/18 16:33 DC Date/Time DO NOT enter until pt leaves facility: 11/10/18 17:08 Supervising Physician Co-Signing Physician Notes I personally examined the patient and verified all weiss points of history and exam, discussed case, and agree with decision making with Dr [place]en[place] No HPI or review of systems obtainable from patient. Family present and updated. Reiterated discussions about comfort feeding and risk of aspiration, as well as reiterating with family that alternative measures are not in line with family's goals for patient's quality of life. They seem to express a good understanding and a very reasonable goal for him to be home and comfortable as best he can be, and seem aware that he is likely to aspirate again. Vitals noted, in general he is in bed in no distress. His breathing appears to be unlabored. No accessory muscle use. Skin shows no rashes no pallor or icterus. Abdomen soft nondistended no notable tenderness/guarding/rigidity. Aspiration pneumoniaappears to be improving. After careful and repeated discussion of risks and benefits with the family, they are understanding of the situation and their plan to value quality of life over maximizing reduction of aspiration risk appears to be quite reasonable. In this respect discharged home, reviewed safe swallow strategies so as to minimize his aspiration risk, but discussed with family that is certainly still there and quite real. Coffee-ground emesisthey did not want any further endoscopic evaluation at this time, which is very reasonable given the patient's situation. More than likely given no ongoing hematemesis, it seems most consistent with gastritis. We will escalate acid suppression therapy with Prilosec for the next 4-8 weeks depending on how he is doing, and then at PCPs direction go back to his H2 giorgio Functional quadriplegiarelated to his cerebral palsy. Continue supportive care. otherwise as above
== END 2018-11-10 17:08 | disposition home or self-care (01) | DRG 871 ==
LOC: ED 21:56 → 4E 11-07 02:41 → SUATTDRO 11-07 02:41 → 4E 11-07 03:31
DX: K59.00 Constipation, unspecified; J69.0 Pneumonitis due to inhalation of food and vomit; G80.8 Other cerebral palsy; R53.2 Functional quadriplegia; K21.9 Gastro-esophageal reflux disease without esophagitis; A41.9 Sepsis, unspecified organism; I25.10 Atherosclerotic heart disease of native coronary artery without angina pectoris; E16.2 Hypoglycemia, unspecified; Z66 Do not resuscitate; E87.6 Hypokalemia; Z79.82 Long term (current) use of aspirin; Z79.899 Other long term (current) drug therapy

== ENCOUNTER 2019-04-01 23:17 | Observation (INO) ==
[~2019-04-01 23:17] MED LIST: RAPID SEQUENCE INDUCTION BAG ONE
[2019-04-01] MEDS ORDERED: LORazepam 2 MG/4 ML VIAL ONE (23:30)
[2019-04-01] MEDS ORDERED: ALBUT/IPRATROP 3MG/0.5MG NEB 3 ML VIAL NEB STA (23:40)
[2019-04-02 00:03] LABS: Basophils # (auto) 0.02 K/uL (0-0.2); Basophils % (auto) 0.4 %; Eosinophils # (auto) 0.44 K/uL (0-0.5); Eosinophils % (auto) 8.1 %; Hematocrit (blood only) 37.5 % (42-52); Hemoglobin 11.7 g/dL (14.0-18.0); Immature Granulocytes # (auto) 0.01 K/uL (0.00-0.02); Immature Granulocytes % (auto) 0.2 %; Lymphocytes # (auto) 1.07 K/uL (1.2-3.4); Lymphocytes % (auto) 19.8 %; Mean Corpuscular Hgb Conc 31.2 g/dL (32-36); Mean Corpuscular Volume 74.1 fL (80-100); Mean Platelet Volume 8.7 fL (7.4-10.4); Monocytes % (auto) 11.1 %; Neutrophils # (auto) 3.27 K/uL (1.4-6.5); Neutrophils % (auto) 60.4 %; Platelet Count 256 K/uL (130-400); RDW Coefficient of Variation 20.4 % (11.5-14.5); RDW Standard Deviation 55.3 fL (36.4-46.3); Red Blood Count 5.06 M/uL (4.7-6.1); White Blood Count 5.41 K/uL (4.8-10.8)
[2019-04-02 00:22] LABS: Alanine Aminotransferase 42 U/L (12-78); Aspartate Aminotransferase 48 U/L (15-37); BUN Creatinine Ratio 27.6 (10-20); Blood Urea Nitrogen 15 mg/dl (7-18); Calcium 8.7 mg/dl (8.5-10.1); Carbon Dioxide 27 mmol/L (21-32); Chloride 109 mmol/L (98-107); Est GFR (African American) 123.3; Est GFR (Non-African American) 106.4; Glucose 107 mg/dl (70-99); Magnesium 2.2 mg/dl (1.8-2.4); Potassium 4.9 mmol/L (3.5-5.1); Sodium 140 mmol/L (136-145)
[2019-04-02 00:24] LABS: Anisocytosis Present; Microcytosis Present; Ovalocytes 1+
[2019-04-02 00:24] LABS: Appearance Urine Clear (Clear); Bilirubin Urine Negative (Negative); Blood Urine Negative (Negative); Color Urine Yellow; Glucose Urine UA Negative (Negative); Ketones Urine Negative (Negative); Leukocyte Esterase Urine Negative (Negative); Nitrite Urine Negative (Negative); Protein Urine Negative (Negative); Specific Gravity Urine 1.022 (1.000-1.030); Urobilinogen Urine Negative (Negative); pH Urine 6.5 (4.5-7.5)
[2019-04-02 00:27] LABS: Albumin Globulin Ratio 0.7 (0.9-2); Alkaline Phosphatase 103 U/L (45-117); Bilirubin,Total 0.2 mg/dl (0.2-1); Globulin 4.1 gm/dl (2.5-4.0); NT Pro B Type Natriuretic Pept 906 pg/ml (0-900); Total Protein 7.1 gm/dl (6.4-8.2); Troponin I < 0.015 ng/ml (0-0.045)
[2019-04-02] MEDS ORDERED: LORazepam 0.25 MG/0.5 ML VIAL IV STA (00:28)
[2019-04-02] MEDS ORDERED: OPTIRAY 320 125ml IV PRN (01:35)
--- NOTE | 2019-04-02 03:00 | Emergency Department Note ---
Entered by Tg Thurman acting as a scribe for History of Present Illness General Chief complaint: Respiratory Distress Stated complaint: Respriatory Distress Source: family, EMS and other (caregiver) Mode of arrival: EMS Limitations: other (nonverbal status) History of Present Illness Onset (ago): hour(s) (this evening ) Location: chest Pain Consistency: + constant Quality: + other (difficult breathing) Associated symptoms: no fever/chills The patient is a 69 year old male who presents to the Emergency Room with his family member, at bedside, complaining that the patient has had respiratory distress beginning this evening. She reports that the patient was at the hospital last night for constipation, noting that he was well throughout the day today. The patient's caregiver, at bedside, states that the patient "had one cough and then he couldn't breathe." The caregiver denies any fever, difficulty eating, and other symptoms throughout the day today. Per EMS, the patient was given oxygen MANAGER INVENTORY CONTROL. The patient's caregiver notes that he took his medications as prescribed today. His family member reports that he has a history of cerebral palsy. His caregiver denies the patient being exposed to anything new today. Per EMS, the patient was in sinus tachycardia with a rate of 106 MANAGER INVENTORY CONTROL. EMS notes that the patients oxygen saturation was 82% on room air with increased work of breathing. With high flow oxygen saturation came up to 94%. Per EMS, the patients blood pressure was 155/110 with a respiratory rate of 55. EMS notes that he had an subjective increased temperature MANAGER INVENTORY CONTROL. EMS reports that the patient has a history of aspiration. HPI limited secondary to patient's nonverbal status. Home Medications Home Medications Medication Instructions Recorded Confirmed Type cholecalciferol (vitamin D3) 1,000 unit PO DAILY 11/07/18 04/01/19 History [Vitamin D3] docusate sodium 100 mg PO BID 11/07/18 04/01/19 History lactulose 10 g PO DAILY 11/07/18 04/01/19 History multivitamin 1 tab PO DAILY 11/07/18 04/01/19 History metoprolol tartrate 25 mg tablet 25 mg PO BID #180 tab 03/03/19 04/01/19 Rx aspirin 81 mg PO DAILY 04/01/19 04/01/19 History ranitidine HCl [Zantac] 150 mg PO DAILY 04/01/19 04/01/19 History amoxicillin-pot clavulanate 1 tab PO BIDM #10 tab 04/02/19 Rx Allergies Allergy/AdvReac Type Severity Reaction Status Date / Time No Known Allergies Allergy Unverified 04/01/19 23:33 Past Med/Surg History Medical History GERD (gastroesophageal reflux disease) Coronary artery disease Cerebral palsy (Acute) Heart attack Family History Other No pertinent family history in first degree relatives Social History Preferred Language: Albanian Communication Ability: Unable Communication Ability Comment: cp-nonverbal Hyperbaric Welder Diver Required: No Beliefs That Will Affect Care: None Current Living Situation: Parent and Family Current Living Situation Comment: home Other Information That Helps Us Care for You: No Feels Safe at Home: Yes Smoking Status: Never smoker Hx Alcohol Use: No Hx Substance Use: No Review of Systems See HPI for pertinent positives & negatives. Other (ROS limited secondary to nonverbal status. ) Physical Exam Vital Signs Vital Signs - 24 hr 04/01/19 23:21 04/01/19 23:28 04/01/19 23:30 Temperature Temperature Source Sepsis Recent Fever Within 48 Hours Sepsis New/Unexplained Change in Mental Status Sepsis Action Taken by Nursing Pulse Rate 94 H 99 H 96 H Pulse Rate [Right Finger] Pulse Rate from SpO2 Sensor 93 H 98 H 94 H Respiratory Rate 28 H 26 H 28 H Respiratory Effort / Characteristics Respiratory Depth Respiratory Pattern Blood Pressure 127/98 Blood Pressure Mean 107 Blood Pressure Position Pulse Oximetry 100 100 99 Oxygen Delivery Method Free Flow/Blow- by Free Flow/Blow- by Free Flow/Blow- by Oxygen Flow Rate 15 15 15 Fraction of Inspired Oxygen 04/01/19 23:35 04/01/19 23:40 04/01/19 23:45 Temperature 99.0 F Temperature Source Rectal Sepsis Recent Fever Within 48 Hours No Sepsis New/Unexplained Change in Mental Status No Sepsis Action Taken by Nursing No Action Required Pulse Rate 94 H 101 H Pulse Rate [Right Finger] 100 H Pulse Rate from SpO2 Sensor 101 H Respiratory Rate 28 H 45 H 21 Respiratory Effort / Characteristics Spontaneous Labored Retracting Spontaneous Accessory Muscle Use Respiratory Depth Retractive Respiratory Pattern Irregular Tachypnea Blood Pressure 127/98 Blood Pressure Mean 107 Blood Pressure Position Lying Pulse Oximetry 100 100 97 Oxygen Delivery Method Free Flow/Blow- by Free Flow/Blow- by Free Flow/Blow- by Oxygen Flow Rate 15 15 12 Fraction of Inspired Oxygen 100 50 04/02/19 00:00 04/02/19 00:05 04/02/19 00:06 Temperature Temperature Source Sepsis Recent Fever Within 48 Hours Sepsis New/Unexplained Change in Mental Status Sepsis Action Taken by Nursing Pulse Rate 102 H 95 H 103 H Pulse Rate [Right Finger] Pulse Rate from SpO2 Sensor 103 H 96 H 103 H Respiratory Rate 29 H 24 31 H Respiratory Effort / Characteristics Respiratory Depth Respiratory Pattern Blood Pressure 104/77 Blood Pressure Mean 86 Blood Pressure Position Pulse Oximetry 99 99 99 Oxygen Delivery Method Free Flow/Blow- by Free Flow/Blow- by Free Flow/Blow- by Oxygen Flow Rate 12 12 12 Fraction of Inspired Oxygen 50 50 50 04/02/19 00:15 04/02/19 00:30 04/02/19 00:45 Temperature Temperature Source Sepsis Recent Fever Within 48 Hours Sepsis New/Unexplained Change in Mental Status Sepsis Action Taken by Nursing Pulse Rate 97 H 104 H 93 H Pulse Rate [Right Finger] Pulse Rate from SpO2 Sensor 97 H 104 H 93 H Respiratory Rate 25 H 27 H 23 Respiratory Effort / Characteristics Respiratory Depth Respiratory Pattern Blood Pressure 109/73 Blood Pressure Mean 85 Blood Pressure Position Pulse Oximetry 98 99 98 Oxygen Delivery Method Free Flow/Blow- by Free Flow/Blow- by Free Flow/Blow- by Oxygen Flow Rate 12 12 12 Fraction of Inspired Oxygen 50 50 50 04/02/19 01:00 04/02/19 01:04 04/02/19 01:36 Temperature Temperature Source Sepsis Recent Fever Within 48 Hours Sepsis New/Unexplained Change in Mental Status Sepsis Action Taken by Nursing Pulse Rate 107 H 92 H 100 H Pulse Rate [Right Finger] Pulse Rate from SpO2 Sensor 106 H 93 H 99 H Respiratory Rate 29 H 16 17 Respiratory Effort / Characteristics Respiratory Depth Respiratory Pattern Blood Pressure 138/98 Blood Pressure Mean 111 Blood Pressure Position Pulse Oximetry 97 100 100 Oxygen Delivery Method Free Flow/Blow- by Nasal Cannula Nasal Cannula Oxygen Flow Rate 12 6 4 Fraction of Inspired Oxygen 50 04/02/19 02:25 04/02/19 04:06 Temperature Temperature Source Sepsis Recent Fever Within 48 Hours Sepsis New/Unexplained Change in Mental Status Sepsis Action Taken by Nursing Pulse Rate 93 H 90 Pulse Rate [Right Finger] Pulse Rate from SpO2 Sensor 93 H Respiratory Rate 21 18 Respiratory Effort / Characteristics Respiratory Depth Respiratory Pattern Blood Pressure 109/78 97/67 L Blood Pressure Mean 88 Blood Pressure Position Pulse Oximetry 100 97 Oxygen Delivery Method Nasal Cannula Room Air Oxygen Flow Rate 4 Fraction of Inspired Oxygen GENERAL: alert, moderate distress, Pt is significantly underdeveloped with severe physical limitations. EYE EXAM: normal conjunctiva, PERRL and EOM's grossly intact OROPHARYNX: no exudate, no erythema, lips, buccal mucosa, and tongue normal and mucous membranes are moist NECK: supple, no nuchal rigidity, no adenopathy, non-tender, chronic rotational deformity of neck rightward LUNGS: Clear to auscultation. Normal chest wall mechanics HEART: no murmurs, S1 normal and S2 normal ABDOMEN: abdomen soft, non-tender, normo-active bowel sounds, no masses, no rebound or guarding. BACK: No midline tenderness, no CVA tenderness. Severe kyphoscoliosis. SKIN: no rashes and no bruising UPPER EXTREMITIES: Chronic appearing atrophy and severe contractures bilaterally, nml appearing perfusion LOWER EXTREMITIES: No pitting edema. Chronic appearing atrophy and severe contractures bilaterally. NEURO EXAM: Nonverbal. Eyes open and alert. Turns head in response to family. Unable to perform additional neuro testing. Course 230: I took the medical command call about the patient's case. Per EMS, the patient was in sinus tachycardia with a rate of 106 MANAGER INVENTORY CONTROL. EMS notes that the patients oxygen saturation was ranging from 82%-94% with increased work of br eathing. Per EMS, the patients blood pressure was 155/110 with a respiratory rate of 55. EMS notes that he had an increase temperature MANAGER INVENTORY CONTROL. EMS reports that the patient has a history of aspiration. 2318: The patient was evaluated in room B01. A complete history and physical exam was performed. 2351: reevaluated the patient, and his respiration rate is 25. He is 97% on blow-by oxygen. 0050: The patient was moved to room A10. 0109: I reassessed the patient, and he is in no acute distress. The patient keeps trying to take off nasal cannula. 0225: Patient still requiring 4 L via nasal cannula. Appears more comfortable. Work of breathing is dramatically improved. Patient no longer significantly tachypneic. 0357: I spoke with Dr. Luo, [facility] hospitalist, about the patient's case. He will further evaluate the patient. Consultations Consultation #1: I spoke with Dr. Luo, [facility] hospitalist, about the patient's case. He will further evaluate the patient. Time: 03:57 Administered Medications Discontinued Medications Acetaminophen (Tylenol) 650 mg PO Q4H PRN PRN Reason: Pain or Fever Stop: 05/02/19 04:42 Last Admin: 04/02/19 13:27 Dose: 650 mg Documented by: [id number] Albuterol (Duoneb) 3 ml NEB NOW STA Stop: 04/01/19 23:41 Last Admin: 04/01/19 23:40 Dose: 3 ml Documented by: [id number] Aspirin (Ecotrin Ectab) 81 mg PO DAILY SHAYY Stop: 05/02/19 08:59 Last Admin: 04/02/19 08:45 Dose: 81 mg Documented by: [id number] Docusate Sodium (Colace) 100 mg PO BID SHAYY Stop: 05/02/19 08:59 Last Admin: 04/02/19 08:45 Dose: Not Given Documented by: [id number] Lorazepam (Ativan) 0.25 mg in 0.5 mls @ 0.5 mls/min IV NOW STA Stop: 04/02/19 00:29 Last Admin: 04/02/19 00:32 Dose: Not Given Documented by: [id number] Ioversol (Optiray 320 125ml) 125 ml IV ONCE PRN PRN Reason: Interaction Checking Stop: 04/06/19 01:34 Last Admin: 04/02/19 01:35 Dose: 118 ml Documented by: [id number] Lactulose (Chronulac) 10 gm PO DAILY@1400 SHAYY Stop: 05/02/19 13:59 Last Admin: 04/02/19 13:26 Dose: Not Given Documented by: [id number] Lorazepam (Ativan) Confirm Administered Dose 2 mg .ROUTE .STK-MED ONE Stop: 04/01/19 23:31 Last Admin: 04/01/19 23:32 Dose: 0.25 mg Documented by: [id number] Metoprolol Tartrate (Lopressor) 25 mg PO BID SHAYY Stop: 05/02/19 08:59 Last Admin: 04/02/19 08:45 Dose: 25 mg Documented by: [id number] Miscellaneous () Confirm Administered Dose 1 ea .ROUTE .STK-MED ONE Stop: 04/01/19 23:14 Last Admin: 04/02/19 02:20 Dose: Not Given Documented by: [id number] Multivitamins (Multivitamin Tab) 1 tab PO DAILY SHAYY Stop: 05/02/19 08:59 Last Admin: 04/02/19 08:45 Dose: 1 tab Documented by: [id number] Pneumococcal Polyvalent Vaccine (Pneumovax-23) 25 mcg IM .ONCE ONE Stop: 04/02/19 09:01 Last Admin: 04/02/19 13:23 Dose: 25 mcg Documented by: [id number] Ranitidine HCl (Zantac) 150 mg PO DAILY SHAYY Stop: 05/02/19 08:59 Last Admin: 04/02/19 08:45 Dose: 150 mg Documented by: [id number] Vitamin D (Vitamin D3) 1,000 units PO DAILY SHAYY Stop: 05/02/19 08:59 Last Admin: 04/02/19 08:45 Dose: 1,000 units Documented by: [id number] Medical Decision Making Differential Diagnosis Etiologies such as infections, reactive airway disease, COPD, pneumonia, pleural effusion, pulmonary edema, ARDS, pneumothorax, CHF, cardiac ischemia, cardiac tamponade, dysrhythmia, anemia, pulmonary embolism, musculoskeletal, gastrointestinal process, as well as others were entertained. Medical Records Attestation: I reviewed the patient's medical records. Home Medications Current Medication List: was personally reviewed by me Laboratory Data Attestation: I reviewed the patient's lab results. Result diagrams: 04/01/19 23:56 04/01/19 23:56 Lab Results 04/01/19 04/01/19 04/02/19 Range/Units 23:56 23:56 00:00 WBC 5.41 (4.8-10.8) K/uL RBC 5.06 (4.7-6.1) M/uL Hgb 11.7 L (14.0-18.0) g/dL Hct 37.5 L (42-52) % MCV 74.1 L (80-100) fL MCH 23.1 L (25-34) pg MCHC 31.2 L (32-36) g/dL RDW Std Deviation 55.3 H (36.4-46.3) fL RDW Coeff of Zain 20.4 H (11.5-14.5) % Plt Count 256 (130-400) K/uL MPV 8.7 (7.4-10.4) fL Immature Gran % (Auto) 0.2 % Neut % (Auto) 60.4 % Lymph % (Auto) 19.8 % [place] % (Auto) 11.1 % Eos % (Auto) 8.1 % Baso % (Auto) 0.4 % Immature Gran # (Auto) 0.01 (0.00-0.02) K/uL Neut # (Auto) 3.27 (1.4-6.5) K/uL Lymph # (Auto) 1.07 L (1.2-3.4) K/uL [place] # (Auto) 0.60 H (0.11-0.59) K/uL Eos # (Auto) 0.44 (0-0.5) K/uL Baso # (Auto) 0.02 (0-0.2) K/uL Anisocytosis Present Microcytosis Present Ovalocytes 1+ Sodium 140 (136-145) mmol/L Potassium 4.9 (3.5-5.1) mmol/L Chloride 109 H (98-107) mmol/L Carbon Dioxide 27 (21-32) mmol/L Anion Gap 4.0 (3-11) BUN 15 (7-18) mg/dl Creatinine 0.54 L (0.6-1.4) mg/dl Est Cr Clr Drug Dosing Not Reportable Est GFR ( Amer) 123.3 Est GFR (Non-Af Amer) 106.4 BUN/Creatinine Ratio 27.6 H (10-20) Glucose 107 H (70-99) mg/dl Calcium 8.7 (8.5-10.1) mg/dl Magnesium 2.2 (1.8-2.4) mg/dl Total Bilirubin 0.2 (0.2-1) mg/dl AST 48 H (15-37) U/L ALT 42 (12-78) U/L Alkaline Phosphatase 103 (45-117) U/L Troponin I < 0.015 (0-0.045) ng/ml NT-Pro-B Natriuret Pep 906 H (0-900) pg/ml Total Protein 7.1 (6.4-8.2) gm/dl Albumin 3.0 L (3.4-5.0) gm/dl Globulin 4.1 H (2.5-4.0) gm/dl Albumin/Globulin Ratio 0.7 L (0.9-2) Lipase 168 (73-393) U/L Urine Color Yellow Urine Appearance Clear (Clear) Urine pH 6.5 (4.5-7.5) Ur Specific [place] 1.022 (1.000-1.030) Urine Protein Negative (Negative) Urine Glucose (UA) Negative (Negative) Urine Ketones Negative (Negative) Urine Blood Negative (Negative) Urine Nitrite Negative (Negative) Urine Bilirubin Negative (Negative) Urine Urobilinogen Negative (Negative) Ur Leukocyte Esterase Negative (Negative) Imaging Data Attestation: I personally reviewed and interpreted this imaging study as follows: My Impression: XR CHEST 1V Portable: No acute pulmonary edema. No obvious consolidation. No evidence of free air. No CM. No pneumothorax. Radiologist's Impression: Radiology results as stated below per my review and the radiologist's interpretation: CTA CHEST: Severe distortion of the anatomy limits assessment. No obvious central pulmonary embolus. Bilateral atelectasis that consolidation. Severe scoliosis. CT ABDOMEN: No aortic aneurysm. No radiodense gallstones or pancreatitis. Hepatic cyst and too small to characterize low-attenuation foci. Bilateral nephrolithiasis. Small low-attenuation focus in the right kidney. Severe scoliosis. Probably dislocated right hip. Radiologist: Yudelka Taylor MD Study ready at 01:41 and initial results transmitted at 02:09. ECG Data Attestation: I personally reviewed and interpreted this ECG as follows: Indication: SOB/dyspnea Rate (beats per minute): 90 Rhythm: sinus rhythm Findings: + other (normal axis, normal intervals) and + Q waves (in V2); no acute ischemic change Blood Pressure Blood Pressure Findings: Low blood pressure Blood Pressure Disposition: further management by hospitalist REINIER Narrative Pt with severe CP here with severe sudden respiratory distress that is new. Both sister and mother who are his caretakers say they have never seen an episode like this in him. No recent fevers, cough, or trouble breathing, prior to sudden onset tonight. They state pt passing gas tonight and had normal BM after visit last night for constipation. Abd soft and non tender, I do not suspect SBO or perf. No difficulty with eating today to suggest aspiration more likely. CT reassuring. Labs reassuring. Pt carefully able to slowly be weaned and WOB decreased, RR decreased. Case discussed with hospitalist after significant time discussing with family at bedside. Given unclear etiology of presentation tonight, family in agreement with plan to observe overnight in the hospital. Impression & Plan Acute respiratory distress, Cerebral palsy, Hypoxia Critical Care Time Critical Care Time: Yes Total Critical Care Time: 40 I have personally spent 40 minutes of critical care time in the direct management of this patient. This includes bedside care, interpretation of diagnostic studies, and testing, discussion with consultants, patient, and famil y members, and other required patient management activities. This 40 minutes is in excess of all separately billable procedures. Discharge Plan Visit Data *Final* Discharge Date/Time: 04/02/19 04:06 Chief Complaint: Respiratory Distress Stated Complaint: Respriatory Distress ED Provider: Jsamina Callaway Discharge Problem: Acute respiratory distress, Cerebral palsy, Hypoxia Patient Disposition: Admitted As Inpatient Discharge Instructions Interventions: ED Discharge Assessment Last Done: 04/02/19 04:06 Discharge Problem: Cerebral palsy Qualifiers: Cerebral palsy type: spastic quadriplegic Qualified Code(s): G80.0 - Spastic quadriplegic cerebral palsy The scribe's documentation has been prepared under my direction and personally reviewed by me in its entirety. I confirm that the note above accurately reflects all work, treatment, procedures, and medical decision making performed by me.
--- NOTE | 2019-04-02 03:44 | History & Physical Report ---
Date of Service April 02, 2019 Assessment & Plan (1) Acute respiratory distress: Acute respiratory distress: resolved likely due to mucous plug obstruction Initially pt was hypoxic to 80s and required 4L Now 96% on RA - resolved CTA chest: no PE, bibasilar atelectasis, severe scoliosis CT abdomen: no acute findings Received ativan and duonebs in the ED Continue duoneb prn Supplemental O2 prn Cerebral palsy Per family, from . Non-verbal at baseline. CAD OR 2005 Continue home aspirin and metoprolol GERD Continued home Zantac Hx of constipation Disimpacted in the ED yesterday Continue home bowel regimen of docusate, and lactulose FEN/GI: heart healthy usual diet DVT prop: SCDs Code: Full Disposition: med/surg telemetry (2) Constipation: (3) GERD (gastroesophageal reflux disease): (4) Coronary artery disease: (5) Cerebral palsy: History of Present Illness Chief Complaint: Difficulty breathing Primary Care Provider: Vidhya Plascencia DO 68-year-old male was brought in by his family with concerns for difficulty breathing. Of note, patient has cerebral palsy since and is nonverbal. All of the history comes from the patient's family at bedside. Patient's sister is the primary caregiver but the patient's mother is also present to provide history. Per sister, the patient was noted to have some difficulty breathing this evening, appeared to be gasping for air. Apparently this is rather sudden onset as it was not noted earlier today and he had no difficulty eating dinner. Sister has not noted cough, runny nose, fever, vomiting, complaint of abdominal pain, diarrhea. Patient was here in the ED last night and had bowel disimpaction. Stool was noted to be normal nonbloody and non-melanotic. Per sister and mother he appears to have improved now and is at his baseline (she makes gurgling noise at baseline). Past medical history includes cerebral palsy, CAD, prior OR in 2005, GERD, constipation. Past surgical history: None. Social history notable for living with his sister (as primary caregiver) as well as his mother. Allergies Allergy/AdvReac Type Severity Reaction Status Date / Time No Known Allergies Allergy Unverified 04/01/19 23:33 Home Medications Home Medications Medication Instructions Recorded Confirmed Type cholecalciferol (vitamin D3) 1,000 unit PO DAILY 11/07/18 04/01/19 History [Vitamin D3] docusate sodium 100 mg PO BID 11/07/18 04/01/19 History lactulose 10 g PO DAILY 11/07/18 04/01/19 History multivitamin 1 tab PO DAILY 11/07/18 04/01/19 History metoprolol tartrate 25 mg tablet 25 mg PO BID #180 tab 03/03/19 04/01/19 Rx aspirin 81 mg PO DAILY 04/01/19 04/01/19 History ranitidine HCl [Zantac] 150 mg PO DAILY 04/01/19 04/01/19 History amoxicillin-pot clavulanate 1 tab PO BIDM #10 tab 04/02/19 Rx Past Med/Surg History Medical History GERD (gastroesophageal reflux disease) Coronary artery disease Cerebral palsy (Acute) Heart attack Family History Other No pertinent family history in first degree relatives Social History Preferred Language: Cypriot Communication Ability: Unable Communication Ability Comment: cp-nonverbal Digital Service Engineer Required: No Beliefs That Will Affect Care: None Current Living Situation: Parent and Family Current Living Situation Comment: home Other Information That Helps Us Care for You: No Feels Safe at Home: Yes Smoking Status: Never smoker Hx Alcohol Use: No Hx Substance Use: No Review of Systems Review of Systems: As per HPI Physical Exam Physical Exam: General: In NAD, sounds like he is gurgling (per family pt's baseline) HEENT: PERRL, mild posterior pharyngeal erythema, no edema, no nasal drainage Neck: No LAD appreciated Neuro: alert, non-verbal MSK: severe scoliosis Pulm: Transmitted upper airway sounds otherwise good air movement and qual breath sounds bilaterally CV: RRR, no m/r/g, cap refill < 2 secs Abdomen:+BS, no TTP in all quadrants, non-distended LE: no LE edema, no calf TTP Results & Data Vital Signs (Past 12 Hours) Vital Signs Temp Pulse Pulse Resp BP Pulse Ox 04/02/19 02:25 93 H 21 109/78 100 04/02/19 01:36 100 H 17 100 04/02/19 01:04 92 H 16 138/98 100 04/02/19 01:00 107 H 29 H 97 04/02/19 00:45 93 H 23 98 04/02/19 00:30 104 H 27 H 109/73 99 04/02/19 00:15 97 H 25 H 98 04/02/19 00:06 103 H 31 H 99 04/02/19 00:05 95 H 24 104/77 99 04/02/19 00:00 102 H 29 H 99 04/01/19 23:45 101 H 21 97 04/01/19 23:40 100 H 45 H 100 04/01/19 23:35 37.2 C 94 H 28 H 127/98 100 04/01/19 23:30 96 H 28 H 99 04/01/19 23:28 99 H 26 H 100 04/01/19 23:21 94 H 28 H 127/98 100 Laboratory Results Abnormal lab results 04/01/19 04/01/19 Range/Units 23:56 23:56 Hgb 11.7 L (14.0-18.0) g/dL Hct 37.5 L (42-52) % MCV 74.1 L (80-100) fL MCH 23.1 L (25-34) pg MCHC 31.2 L (32-36) g/dL RDW Std Deviation 55.3 H (36.4-46.3) fL RDW Coeff of Zain 20.4 H (11.5-14.5) % Lymph # (Auto) 1.07 L (1.2-3.4) K/uL [place] # (Auto) 0.60 H (0.11-0.59) K/uL Chloride 109 H (98-107) mmol/L Creatinine 0.54 L (0.6-1.4) mg/dl BUN/Creatinine Ratio 27.6 H (10-20) Glucose 107 H (70-99) mg/dl AST 48 H (15-37) U/L NT-Pro-B Natriuret Pep 906 H (0-900) pg/ml Albumin 3.0 L (3.4-5.0) gm/dl Globulin 4.1 H (2.5-4.0) gm/dl Albumin/Globulin Ratio 0.7 L (0.9-2) Medications Administered Current Inpatient Medications Ioversol (Optiray 320 125ml) 125 ml IV ONCE PRN PRN Reason: Interaction Checking Stop: 04/06/19 01:34 Last Admin: 04/02/19 01:35 Dose: 118 ml Documented by: Code Status & VTE Plan Code Status Full VTE Prophylaxis Plan VTE Prophylaxis will be ordered: Yes Supervising Physician Co-Signing Physician Notes Attending addendum: I have physically seen this patient, have supervised the medical residents activities, and agree with the H&P unless as otherwise noted. Assessment and Plan: Acute respiratory distress- Quick onset and quick resolution suggests because of mucous plugging. Duonebs every 4 hours while awake and every 2 hours when necessary. Follow sputum Gram stain and culture. Maintain pulse ox 90 to 94% with supplemental oxygen. Remaining orders and notations as noted. PG Care Time/CCT Total # of Minutes Spent Total Time Spent with Patient: Total time spent is greater than 50% in coordination of care (as documented) at patient's floor/unit and/or counseling patient: Resident Activity Tracking Resident Involvement: Resident Care Provided Care Provided: Adult Hospital Medicine (1) Cerebral palsy Cerebral palsy type: spastic quadriplegic Qualified Code(s): G80.0 - Spastic quadriplegic cerebral palsy (2) Constipation Constipation type: unspecified constipation type Qualified Code(s): K59.00 - Constipation, unspecified
[2019-04-02] MEDS ORDERED: ACETAMINOPHEN 325 MG TAB PO PRN (04:43)
[2019-04-02] MEDS ORDERED: POLYETHYLENE (MIRALAX) 17 GM PACK PO PRN (04:43)
[2019-04-02] MEDS ORDERED: ALBUT/IPRATROP 3MG/0.5MG NEB 3 ML VIAL NEB PRN (06:17)
--- NOTE | 2019-04-02 06:56 | XRay Report ---
XR chest 1V portable CLINICAL HISTORY: 69 years-old Male presenting with sob. TECHNIQUE: Portable supine AP view of the chest was obtained. COMPARISON: 04/01/2019. FINDINGS: Severe scoliotic curvature of the thoracolumbar spine resulting in suboptimal positioning. Allowing f or this, cardiomediastinal silhouette grossly stable though with possible mild enlargement of the car diac silhouette. A rounded lucency is suggested in the right lung base measuring roughly 6 cm. This m ay represent superimposed colonic gas. No other focal opacity. No large effusion or pneumothorax. Ost eopenia. Severe scoliosis as mentioned. Upper abdomen normal. IMPRESSION: 1. Allowing for suboptimal positioning due to severe scoliosis, no acute cardiopulmonary disease. Electronically signed by: Cortes Amezquita M.D. 04/02/2019 6:55 AM
--- NOTE | 2019-04-02 07:38 | CT Scan Report ---
CT angio chest PE protocol CT DOSE: 302.82 mGy.cm HISTORY: 69 years-old Male with PE. Acute shortness of breath TECHNIQUE: Multiple CTA images of the chest were obtained after the intravenous administration of 118 ml Optiray 320. Coronal and sagittal MIPS were obtained from the axial data set and were submitted for review. All measurements were obtained according to NASCET criteria. A dose lowering technique w as utilized adhering to the principles of ALARA. COMPARISON: Chest radiograph 04/01/2019 FINDINGS: Limited study secondary to patient positioning with distorted anatomy secondary to severe sigmoidal s coliosis. T study is also motion degraded. He patient reportedly has cerebral palsy. CTA: Heart is normal in size without pericardial effusion. No definite thoracic aortic aneurysm or dissect ion. Patency of the imaged great vessels. No focal filling defects within the pulmonary arterial tree identified to suggest pulmonary thromboembolic disease. CT CHEST: Unremarkable thyroid. No adenopathy by CT size criteria. Consolidation of the right lower lobe. Linea r subsegmental consolidation and groundglass densities of the basal left lower lobe suggest atelectas is. No pneumothorax. There are no suspicious pulmonary nodules or masses identified. Central airways appear patent. Probable hepatic cysts measure up to approximately 12 mm. There are additional probable renal cysts w ith a few nonobstructing calculi noted bilaterally measuring up to 5 mm on the left. Chronically disl ocated right hip. Demineralized appearance of the bones. Atrophy of the musculature. IMPRESSION: 1. Limited exam as above. 2. No evidence of pulmonary thromboembolic disease. 3. Right basilar consolidation with heterogeneous attenuation suggestive of admixture of atelectasis with pneumonia or aspiration pneumonitis. Correlate clinically. 4. Nonobstructing bilateral nephrolithiasis. 5. Additional findings as above. The above report was generated using voice recognition software. It may contain grammatical, syntax o r spelling errors. Electronically signed by: Aime Stevenson M.D. 04/02/2019 7:37 AM
[2019-04-02] MEDS ORDERED: MULTIVITAMIN TAB PO SCH (09:00)
[2019-04-02] MEDS ORDERED: METOPROLOL TARTRATE 25 MG TAB PO SCH (09:00)
[2019-04-02] MEDS ORDERED: ASPIRIN 81 MG ECTAB PO SCH (09:00)
[2019-04-02] MEDS ORDERED: PNEUMOCOCCAL ADMINISTRATION CHARGE ONE (09:00)
[2019-04-02] MEDS ORDERED: PNEUMOCOCCAL POLYSACCHARIDES 25 MCG/0.5 ML VIAL/SYR IM ONE (09:00)
[2019-04-02] MEDS ORDERED: CHOLECALCIFEROL 1,000 UNITS TAB PO SCH (09:00)
[2019-04-02] MEDS ORDERED: DOCUSATE SODIUM 100 MG CAP PO SCH (09:00)
--- NOTE | 2019-04-02 12:42 | Discharge Summary ---
Date of Service April 02, 2019 Admission HPI Per Admitting Provider 68-year-old male was brought in by his family with concerns for difficulty breathing. Of note, patient has cerebral palsy since and is nonverbal. All of the history comes from the patient's family at bedside. Patient's sister is the primary caregiver but the patient's mother is also present to provide history. Per sister, the patient was noted to have some difficulty breathing this evening, appeared to be gasping for air. Apparently this is rather sudden onset as it was not noted earlier today and he had no difficulty eating dinner. Sister has not noted cough, runny nose, fever, vomiting, complaint of abdominal pain, diarrhea. Patient was here in the ED last night and had bowel disimpaction. Stool was noted to be normal nonbloody and non-melanotic. Per sister and mother he appears to have improved now and is at his baseline (she makes gurgling noise at baseline). Past medical history includes cerebral palsy, CAD, prior AR in 2005, GERD, constipation. Past surgical history: None. Social history notable for living with his sister (as primary caregiver) as well as his mother. Principal Diagnosis Acute respiratory failure, pneumonia Discharge Exam Constitutional WD/WN, vitals as above Respiratory normal respiratory effort, lungs clear to auscultation Cardiovascular RRR, no murmur, no edema Gastrointestinal (Abdomen) Inspection/Auscultation: normal bowel sounds; abdomen not distended Percussion/Palpation: abdomen soft; abdomen nontender Musculoskeletal Spine: + scoliosis Extremities: + muscle atrophy Skin no rashes, warm and dry Neurologic awake bedbound at baseline Psychiatric Orientation: alert Discharge Data Allergies Allergy/AdvReac Type Severity Reaction Status Date / Time No Known Allergies Allergy Unverified 04/01/19 23:33 Consultations 04/02/19 04:10 ED Decision to Admit Stat Ordered Studies 04/02/19 00:28 CT angio chest PE protocol Urgent Hospital Course (1) Acute respiratory distress: Acute respiratory distress: resolved likely due to mucous plug obstruction vs possible pneumonia Initially pt was hypoxic to 80s and required 4L Now on RA since 0 this am - hypoxia resolved CTA chest: no PE, bibasilar atelectasis vs pna, severe scoliosis CT abdomen: no acute findings Received ativan and duonebs in the ED Continue duoneb prn Will provide Augmentin BID x 5 days (2) Constipation: (3) GERD (gastroesophageal reflux disease): continue Zantac (4) Coronary artery disease: (5) Cerebral palsy: cared for by sister and mother non verbal at baseline (6) CAD (coronary artery disease): AR 2005 Continue home aspirin and metoprolol (7) Constipation: Disimpacted in the ED yesterday Continue home bowel regimen of docusate, and lactulose Total Time Total Time Spent Total Time Spent (In Minutes): greater than 30 minutes Discharge Plan Discharge Items Patient Disposition: Home - Self-Care Reason For Visit: ACUTE HYPOXIA Discharge Diagnosis: Acute hypoxia Discharge Goals: Decrease discomfort Activity: Resume your previous activity Non-emergency contact: Primary Care Provider Call non-emergency contact if: you have any medication questions, your symptoms worsen and you have a fever Follow-up/Referrals: Vidhya Plascencia, [Primary Care Provider] - Diet: Regular Addtl Provider Instructions: Please follow up with your primary care provider next week. Prescriptions: New amoxicillin-pot clavulanate 875-125 mg Tablet 1 tab PO BIDM Qty: 10 RF: 0 Continued metoprolol tartrate 25 mg tablet 25 mg PO BID Qty: 180 RF: 3 ranitidine HCl [Zantac] 150 mg Tablet 150 mg PO DAILY RF: 0 aspirin 81 mg Tablet,Delayed Release (Dr/Ec) 81 mg PO DAILY RF: 0 lactulose 10 gram/15 mL Solution 10 g PO DAILY RF: 0 docusate sodium 100 mg Tablet 100 mg PO BID RF: 0 cholecalciferol (vitamin D3) [Vitamin D3] 1,000 unit Tablet 1,000 unit PO DAILY RF: 0 multivitamin Tablet 1 tab PO DAILY RF: 0 Stand-Alone Forms: [facility] Discharge Orders: Discharge Order (Routine); Ordered 04/02/19 Ordered By: Aretha Kc Admission Data Admit Date/Time: 04/02/19 03:43 Attending Provider: Brayan Pimentel Admit Provider: Joe Luo Primary Care Provider: Vidhya Plascencia Other Providers: Brayan Pimentel Service: Telemetry Medical
[2019-04-02] MEDS ORDERED: LACTULOSE SYRUP 20 GM/30 ML UDC PO SCH (14:00)
[2019-04-02] MEDS ORDERED: AMOXICILLIN/CLAVULANATE 875 MG TAB PO SCH (17:00)
== END 2019-04-02 15:00 | disposition home or self-care (01) ==
LOC: 2N 23:17 → ED 23:17 → SUATTDRO 04-02 03:43 → 2N 04-02 04:06